=== PATIENT | male | born 1985 | race African-American/Black ===

== ENCOUNTER 2016-10-25 13:13 | Emergency (ER) | payer OTHER ==
[~2016-10-25] VITALS: Ht 188 cm; Wt 95.3 kg
[~2016-10-25 13:13] MED LIST: ALBU8.5H2 IH; AMLO5TAB2 PO; AZIT-21 PO; Amlodipine Besylate PO; CFR250T PO; Lisinopril PO; PRD20T PO
--- OUTSIDE RECORDS SUMMARY | 2016-10-25 13:22 | XMS REPORT | Continuity of Care Document ---
Author Author [facility] Organization [facility] Address Unknown Phone Unavailable Care Team Providers Care Inside Sales Territory Manager Name Role Phone NO, LOCAL PHYSICIAN PCP Unavailable Insurance Providers Payer Name Policy Number Subscriber Name Relationship [facility] [id number] Azar Rivera 20 Self / Same As Patient Advance Directives Directive Response Recorded Date/Time Advance Directives No 03/10/15 5:15pm Organ Donor Yes 03/10/15 5:15pm Resuscitation Status Full Code 03/10/15 5:15pm Chief Complaint and Reason for Visit Chief Complaint CHEST PAIN;UNCONTROLLED HTN Reason for Visit Uncontrolled hypertension Chest pain Uncontrolled hypertension Renal insufficiency Uncontrolled hypertension Problems Medical Problems Problem Onset Date Status Substance abuse Unknown Active Tobacco abuse Unknown Active Pneumonia Unknown Active Substance abuse Unknown Active Tobacco abuse Unknown Active Pneumonia Unknown Active Uncontrolled hypertension Unknown Active Chest pain Unknown Active Uncontrolled hypertension Unknown Active Renal insufficiency Unknown Active Uncontrolled hypertension Unknown Active Medications Medication Dose Route Sig Days/Qty Instructions Order Date Discontinued Date Status Azithromycin (Zpak) 0 PO Z-PRASANTH 6 Qty 2 Tabs 1st day (now), 1 Tab daily 03/10/15 Discontinued Cefuroxime Axetil 1 Tab PO TWICE A DAY 20 Qty 05/01/14 03/10/15 Discontinued Prednisone 60 Mg PO DAILY 15 Qty 05/01/14 03/10/15 Discontinued Albuterol 2 Puff IH EVERY 4HRS For COUGH 1 Qty 05/01/14 03/10/15 Discontinued Amlodipine Besylate (Norvasc 5 Mg) 5 Mg PO DAILY For BLOOD PRESSURE 30 Qty 05/01/14 03/10/15 Discontinued [Amlodipine Besylate] 10 Mg PO DAILY 03/11/15 Active [Lisinopril] 20 Mg PO DAILY 03/11/15 Active Social History Social History Problem Response Recorded Date/Time Alcohol Use Occasionally Uses 03/10/2015 5:15pm Recreational Drug Use Y ADMITS TO THC, BUT HAS TESTED + FOR METH IN PAST 5:15pm Recent Foreign Travel No 03/10/2015 5:15pm Recent Infectious Disease Exposure No 03/10/2015 5:15pm Smoking Status Current Someday Smoker 03/10/2015 5:15pm Do you dip or chew tobacco? No 03/10/2015 5:15pm Query Response Start Date Stop Date Smoking Status Current Someday Smoker Hospital Discharge Instructions No hospital discharge instructions. Plan of Care Discharge Date 03/11/15 12:40pm Disposition 01 HOME, SELF-CARE Instructions/Education Provided Chest Pain (DC) 2 Gram Sodium Diet (DC) Forms Provided PDI Cardiac Cath Prescriptions See Medications Section Referrals PETER ASHRAF MD (Unspecified) 03/18/15 Address: [address] [place], [place] [address] Reason(s) for Referral: AT 10:30 AM CALL AND RESCHEDULE IF UNABLE TO KEEP APPOINTMENT DELIA HOLT MD (Unspecified) Address: [address] [place] [phone] Care Plan and Goals F/U Dr Ashraf's office on March 18 at 10:30 F/U Dr Holt per his instructions Low Sodium Diet Functional Status Query Response Date Recorded Comprehension Ability Understands Concepts March 11, 2015 8:31am Allergies, Adverse Reactions, Alerts Allergen Type Severity Reaction Status Last Updated No Known Drug Allergies Active 05/01/14 Immunizations Name Given Type Tetanus Booster (TDap) More than 5yrs Historical Vital Signs Acute Vital Signs Vital Response Date/Time Temperature (Fahrenheit) 98.0 degrees F (97.6 - 99.5) Temperature (Calculated Celsius) 36.90380 degrees C (36.4 - 37.5) Temperature Source Temporal Pulse Rate (adult) 65 bpm (60 - 90) Respiratory Rate 20 bpm (12 - 24) O2 Sat by Pulse Oximetry 100 % (88 - 100) Blood Pressure 172/110 mm Hg Pain Pain Intensity 0 Height (Feet) 6 feet Height (Inches) 2 inches Height (Calculated Centimeters) 187.619234 cm Weight (Pounds) 197 pounds Weight (Ounces) 0.1 oz Weight (Calculated Grams) 16597.533 gm Weight (Calculated Kilograms) 89.557134 kilograms Calculated BMI 26.32 Results Laboratory Results Test Name Result Units Flags Reference Collection Date/Time Result Date/ Time Comments White Blood Count 4.3 10^3/uL 4.3-11.0 03/11/2015 5:3003/11/2015 5: 46am Red Blood Count 5.47 10^6/uL 4.35-5.85 03/11/2015 5:03/11/2015 5: 46am Hemoglobin 16.8 G/DL 13.3-17.7 03/11/2015 5:03/11/2015 5:46am Hematocrit 49 % 40-54 03/11/2015 5:03/11/2015 5:46am Mean Corpuscular Volume 89 FL 80-99 03/11/2015 5:03/11/2015 5: 46am Mean Corpuscular Hemoglobin 31 PG 25-34 03/11/2015 5:3003/11/2015 5: 46am Mean Corpuscular Hemoglobin Concent 35 G/DL 32-36 03/11/2015 5:30 5:46am Red Cell Distribution Width 12.5 % 10.0-14.5 03/11/2015 5:2014 5:46am Platelet Count 283 10^3/uL 130-400 03/11/2015 5:3003/11/2015 5:46am Mean Platelet Volume 8.6 FL 7.4-10.4 03/11/2015 5:3003/11/2015 5: 46am Neutrophils (%) (Auto) 55 % 42-75 03/11/2015 5:3003/11/2015 5:46am Lymphocytes (%) (Auto) 36 % 12-44 03/11/2015 5:3003/11/2015 5:46am Monocytes (%) (Auto) 6 % 0-12 03/11/2015 5:3003/11/2015 5:46am Eosinophils (%) (Auto) 2 % 0-10 03/11/2015 5:30am 03/11/2015 5:46am Basophils (%) (Auto) 1 % 0-10 03/11/2015 5:3003/11/2015 5:46am Neutrophils # (Auto) 2.4 X 10^3 1.8-7.8 03/11/2015 5:3003/11/2015 5: 46am Lymphocytes # (Auto) 1.5 X 10^3 1.0-4.0 03/11/2015 5:3003/11/2015 5: 46am Monocytes # (Auto) 0.3 X 10^3 0.0-1.0 03/11/2015 5:3003/11/2015 5: 46am Eosinophils # (Auto) 0.1 10^3/uL 0.0-0.3 03/11/2015 5:30am 03/11/2015 5 :46am Basophils # (Auto) 0.1 10^3/uL 0.0-0.1 03/11/2015 5:3003/11/2015 5: 46am Prothrombin Time 14.8 SEC H 12.2-14.7 03/10/2015 2:20pm 03/10/2015 2: 49pm INR Comment 1.2 0.8-1.4 03/10/2015 2:20pm 03/10/2015 2:49pm INTERPRETIVE DATA SUGGESTED THERAPEUTIC RANGE FOR INR'S: VENOUS THROMBOSIS, PULMONARY EMBOLISM, OR PREVENTION OF SYSTEMIC EMBOLISM (EG. IN ATRIAL FIBRILLATION): 2.0 - 3.0 MECHANICAL PROSTHETIC HEART VALVES: 2.5 - 3.5* *NOTE: INR'S UP TO 4.5 MAY BE NECESSARY IN SELECTED GROUPS OF HIGH RISK PATIENTS. [employer] CONSENSUS CONFERENCE ON ANTITHROMBOTIC THERAPY (2000). Activated Partial Thromboplast Time 33 SEC 24-35 03/10/2015 2:20pm 2:49pm D-Dimer < 0.27 UG/ML 0.00-0.49 03/10/2015 2:20pm 03/10/2015 2:49pm Urine Color YELLOW 03/10/2015 3:00pm 03/10/2015 3:25pm Urine Clarity CLEAR 03/10/2015 3:00pm 03/10/2015 3:25pm Urine pH 6.5 5-9 03/10/2015 3:00pm 03/10/2015 3:25pm Urine Specific [place] 1.015 * 1.016-1.022 03/10/2015 3:00pm 2014 3:25pm Urine Protein 1+ * NEGATIVE 03/10/2015 3:00pm 03/10/2015 3:25pm Urine Glucose (UA) NEGATIVE NEGATIVE 03/10/2015 3:00pm 03/10/2015 3: 25pm Urine RBC (Auto) NEGATIVE NEGATIVE 03/10/2015 3:00pm 03/10/2015 3: 25pm Urine Ketones NEGATIVE NEGATIVE 03/10/2015 3:00pm 03/10/2015 3:25pm Urine Nitrite NEGATIVE NEGATIVE 03/10/2015 3:00pm 03/10/2015 3:25pm Urine Bilirubin NEGATIVE NEGATIVE 03/10/2015 3:00pm 03/10/2015 3: 25pm Urine Urobilinogen NORMAL MG/DL NORMAL 03/10/2015 3:00pm 03/10/2015 3: 25pm Urine Leukocyte Esterase 1+ * NEGATIVE 03/10/2015 3:00pm 03/10/2015 3: 25pm Urine RBC NONE /HPF 03/10/2015 3:00pm 03/10/2015 3:25pm Urine WBC RARE /HPF 03/10/2015 3:00pm 03/10/2015 3:25pm Urine Bacteria NONE /HPF 03/10/2015 3:00pm 03/10/2015 3:25pm Urine Squamous Epithelial Cells RARE /HPF 03/10/2015 3:00pm 2014 3:25pm Urine Crystals NONE /LPF 03/10/2015 3:00pm 03/10/2015 3:25pm Urine Casts NONE /LPF 03/10/2015 3:00pm 03/10/2015 3:25pm Urine Mucus NEGATIVE /LPF 03/10/2015 3:00pm 03/10/2015 3:25pm Urine Culture Indicated NO 03/10/2015 3:00pm 03/10/2015 3:25pm Sodium Level 139 MMOL/L 135-145 03/11/2015 5:30am 03/11/2015 6:06am Potassium Level 4.8 MMOL/L 3.6-5.0 03/11/2015 5:30am 03/11/2015 6:06am Chloride Level 107 MMOL/L 98-107 03/11/2015 5:3003/11/2015 6:06am Carbon Dioxide Level 23 MMOL/L 21-32 03/11/2015 5:30am 03/11/2015 6: 06am Blood Urea Nitrogen 13 MG/DL 7-18 03/11/2015 5:30am 03/11/2015 6:06am Creatinine 1.16 MG/DL 0.60-1.30 03/11/2015 5:30am 03/11/2015 6:06am BUN/Creatinine Ratio 11 03/11/2015 5:30am 03/11/2015 6:06am Estimat Glomerular Filtration Rate > 60 03/11/2015 5:302014 6:06am GFR INTERPRETIVE DATA UNITS FOR ESTIMATED GFR (eGFR): mL/min/1.73 M2 REFERENCE RANGE FOR ESTIMATED GFR (eGFR) eGFR NORMAL eGFR >60 MODERATELY DECREASED eGFR 30-59 SEVERLY DECREASED eGFR 15-29 KIDNEY FAILURE <15 (OR DIALYSIS) Glucose Level 88 MG/DL 70-105 03/11/2015 5:3003/11/2015 6:06am Calcium Level 9.2 MG/DL 8.5-10.1 03/11/2015 5:3003/11/2015 6:06am Magnesium Level 2.2 MG/DL 1.8-2.4 03/10/2015 2:20pm 03/10/2015 2:54pm Total Bilirubin 0.8 MG/DL 0.1-1.0 03/11/2015 5:3003/11/2015 6:06am Alkaline Phosphatase 49 U/L 40-136 03/11/2015 5:3003/11/2015 6:06am Aspartate Amino Transf (AST/SGOT) 28 U/L 5-34 03/11/2015 5:302014 6:06am Alanine Aminotransferase (ALT/SGPT) 34 U/L 0-55 03/11/2015 5:30am 03/11 6:06am Total Creatine Kinase 179 U/L 30-200 03/10/2015 2:20pm 03/10/2015 2: 54pm Creatine Kinase MB 1.5 NG/ML <6.6 03/10/2015 2:20pm 03/10/2015 3:14pm Troponin I < 0.30 NG/ML <0.30 03/11/2015 5:30am 03/11/2015 6:09am Troponin I < 0.30 NG/ML <0.30 03/10/2015 8:40pm 03/10/2015 9:29pm B-Type Natriuretic Peptide < 10.0 PG/ML <100.0 03/10/2015 2:20pm 2014 3:05pm Total Protein 6.9 G/DL 6.4-8.2 03/11/2015 5:30am 03/11/2015 6:06am Albumin 4.2 G/DL 3.2-4.5 03/11/2015 5:30am 03/11/2015 6:06am Triglycerides Level 72 MG/DL <150 03/11/2015 5:30am 03/11/2015 6:06am Cholesterol Level 169 MG/DL < 200 03/11/2015 5:30am 03/11/2015 6:06am HDL Cholesterol 45 MG/DL 40-60 03/11/2015 5:30am 03/11/2015 6:06am LDL Cholesterol Direct 92 MG/DL 1-129 03/11/2015 5:30am 03/11/2015 6: 06am VLDL Cholesterol 14 MG/DL 5-40 03/11/2015 5:30am 03/11/2015 6:06am Amylase Level 88 U/L 25-125 03/10/2015 2:20pm 03/10/2015 2:54pm Lipase 36 U/L 8-78 03/10/2015 2:20pm 03/10/2015 2:54pm TSH Ju[place] Testing 1.63 UIU/ML 0.35-4.94 03/10/2015 2:20pm 03/10/2015 3:14pm Procedures Procedure Status Date Provider(s) Tracing only of electrocardiogram completed 03/10/15 BOBBY RAMIREZ DO Color Doppler echocardiography completed 03/10/15 DELIA HOLT MD Encounters Encounter Location Date/Time Admitted Inpatient [facility] 03/10/15 4:35pm Recent Diagnosis Uncontrolled hypertension Chest pain Uncontrolled hypertension Renal insufficiency Uncontrolled hypertension
--- NOTE | 2016-10-25 13:48 | ED Cardiac General ---
History of Present Illness General Chief Complaint: Cardiac/General Problems Stated Complaint: ELEVATED BP Nursing Triage Note: c/o elevated blood pressure. Source: patient Exam Limitations: no limitations History of Present Illness Time seen by provider: 13:35 Initial Comments Patient presents to the ED with c/o elevated BP at home. Patient states he was out of his BP meds for 1 wk. Yesterday he was able to fill the prescriptions and started them yesterday morning. Today his BP was still 190/120mmHg. Patient states he was dx with HTN 1.5 yrs ago and was seen by Dr. Holt in the hospital. Patient's father at the age of 36 from colon cancer. Father also had HTN. Denies chest pain, SOB, dizziness, n/v/d, heartburn. Timing/Duration: other (chronic hypertension. Worse for the last week.) Activities at Onset: none Prior CP/Workup: echocardiography Modifying Factors: improves with other (improved with antihypertensives.) NTG SL MONITORING MANAGER: No ASA po MONITORING MANAGER: No Allergies and Home Medications Allergies Coded Allergies: No Known Drug Allergies (Unverified , 05/01/14) Home Medications 10 MG TABLET 10 MG PO DAILY Prescribed by: PETER REGAN on 03/11/15 1210 20 MG TAB 20 MG PO DAILY Prescribed by: PETER REGAN on 03/11/15 1210 Review of Systems Constitutional: No chills, No diaphoresis, No dizziness, No fever, No malaise, No weakness EENTM: No Symptoms Reported Respiratory: Denies Cough, Denies Orthopnea, Denies Shortness of Air Cardiovascular: See HPIDenies Chest Pain, Denies Edema, Denies Irregular Heart Rate, Denies Lightheadedness, Denies Palpitations, Denies Syncope Gastrointestinal: No Symptoms Reported Genitourinary: No Symptoms Reported Musculoskeletal: no symptoms reported Skin: no symptoms reported Psychiatric/Neurological: HeadacheDenies Numbness, Denies Paresthesia, Denies Tingling, Denies Weakness All Other Systems Reviewed Negative Unless Noted: Yes (Negative excepted noted.) Past Oxxwpif-Wmvfck-Vftxyu Hx Patient Social History Recent Foreign Travel: No Contact w/Someone Who Travel: No Recent Infectious Disease Expo: No Immunizations Up To Date Tetanus Booster (TDap): More than 5yrs Surgeries HX Surgeries: No Respiratory Hx Respiratory Disorders: No Cardiovascular Hx Cardiac Disorders: Yes (HAS REFUSED TO TAKE MEDICATIONS) Cardiac Disorders: Hypertension Neurological Hx Neurological Disorders: No Reproductive System Hx Reproductive Disorders: No Genitourinary Hx Genitourinary Disorders: Yes (chronic kidney disease.) Gastrointestinal Hx Gastrointestinal Disorders: No Musculoskeletal Hx Musculoskeletal Disorders: No Endocrine Hx Endocrine Disorders: No HEENT HX ENT Disorders: No Cancer Hx Cancer: No Psychosocial Hx Psychiatric Problems: No Blood Transfusions Hx Blood Disorders: No Adverse Reaction to a Blood Tr: No Reviewed Nursing Assessment Reviewed/Agree w Nursing PMH: Yes Family Medical History Significant Family History: Cancer (father had colon cancer ( at 36)), Hypertension (father.) Physical Exam Vital Signs Vital Sign - Last 12Hours 10/25/16 13:33 Temp 97.3 Pulse 82 Resp 16 B/P 196/136 Pulse Ox 98 Capillary Refill : Less Than 3 Seconds General Appearance: No Apparent Distress WD/WN HEENT: PERRL/EOMI Pharynx Normal Neck: Normal Inspection Supple Respiratory: Chest Non Tender Lungs Clear Normal Breath Sounds No Respiratory Distress Cardiovascular: Regular Rate, Rhythm No Edema No Murmur Normal Peripheral Pulses Gastrointestinal: Normal Bowel Sounds No Organomegaly No Pulsatile Mass Non Tender SoftNo Distended Extremity: Normal Capillary Refill No Calf Tenderness No Pedal Edema Neurologic/Psychiatric: Alert Oriented x3 No Motor/Sensory Deficits Normal 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 Norm as Tested Skin: Normal Color Warm/Dry Progress/Results/Core Measures Results/Orders Lab Results Laboratory Tests Test 10/25/16 14:26 Range/Units Activated Partial Thromboplast Time 30 24-35 SEC Alanine Aminotransferase (ALT/SGPT) 45 0-55 U/L Albumin 4.6 H 3.2-4.5 G/DL Alkaline Phosphatase 52 40-136 U/L Anion Gap 5 5-14 MMOL/L Aspartate Amino Transf (AST/SGOT) 23 5-34 U/L BUN/Creatinine Ratio 12 Basophils # (Auto) 0.0 0.0-0.1 10^3/uL Basophils (%) (Auto) 1 0-10 % Blood Urea Nitrogen 20 H 7-18 MG/DL Calcium Level 9.3 8.5-10.1 MG/DL Carbon Dioxide Level 28 21-32 MMOL/L Chloride Level 106 98-107 MMOL/L Creatine Kinase MB 1.2 <6.6 NG/ML Creatinine 1.65 H 0.60-1.30 MG/DL D-Dimer < 0.27 0.00-0.49 UG/ML Eosinophils # (Auto) 0.2 0.0-0.3 10^3/uL Eosinophils (%) (Auto) 3 0-10 % Estimat Glomerular Filtration Rate 60 Glucose Level 76 70-105 MG/DL Hematocrit 49 40-54 % Hemoglobin 17.1 13.3-17.7 G/DL INR Comment 1.2 0.8-1.4 Lymphocytes # (Auto) 1.5 1.0-4.0 X 10^3 Lymphocytes (%) (Auto) 30 12-44 % Magnesium Level 2.2 1.8-2.4 MG/DL Mean Corpuscular Hemoglobin 31 25-34 PG Mean Corpuscular Hemoglobin Concent 35 32-36 G/DL Mean Corpuscular Volume 88 80-99 FL Mean Platelet Volume 8.7 7.4-10.4 FL Monocytes # (Auto) 0.3 0.0-1.0 X 10^3 Monocytes (%) (Auto) 6 0-12 % Myoglobin 43.9 10.0-92.0 NG/ML Neutrophils # (Auto) 3.1 1.8-7.8 X 10^3 Neutrophils (%) (Auto) 61 42-75 % Platelet Count 273 130-400 10^3/uL Potassium Level 4.0 3.6-5.0 MMOL/L Prothrombin Time 14.4 12.2-14.7 SEC Red Blood Count 5.59 4.35-5.85 10^6/uL Red Cell Distribution Width 13.2 10.0-14.5 % Sodium Level 139 135-145 MMOL/L Total Bilirubin 0.4 0.1-1.0 MG/DL Total Creatine Kinase 151 30-200 U/L Total Protein 7.4 6.4-8.2 G/DL Troponin I < 0.30 <0.30 NG/ML White Blood Count 5.1 4.3-11.0 10^3/uL My Orders Orders-PAKO TRINIDAD PA Cbc With Automated Diff (10/25/16 13:43) Magnesium (10/25/16 13:43) Chest 1 View, Ap/Pa Only (10/25/16 13:43) Ekg Tracing (10/25/16 13:43) Cardiac Profile 1 (10/25/16 13:43) Comprehensive Metabolic Panel (10/25/16 13:43) Myoglobin Serum (10/25/16 13:43) Protime With Inr (10/25/16 13:43) Partial Thromboplastin Time (10/25/16 13:43) Monitor-Rhythm Ecg Trace Only (10/25/16 13:43) Saline Lock/Iv-Start (10/25/16 13:43) Creatine Kinase (10/25/16 13:43) Creatine Kinase Mb (10/25/16 13:43) Fibrin Degradation Products (10/25/16 13:43) Ketorolac Injection (Toradol Injection) (10/25/16 14:04) Orphenadrine Injection (Norflex Injectio (10/25/16 14:04) Enalaprilat Injection (Vasotec Injection (10/25/16 14:15) Amlodipine Tablet (Norvasc Tablet) (10/25/16 15:45) Medications Given in ED Vital Signs/I&O Vital Sign - Last 12Hours 10/25/16 10/25/16 10/25/16 13:33 14:34 15:45 Temp 97.3 97.3 97.3 Pulse 82 82 Resp 16 16 B/P 196/136 Pulse Ox 98 98 Blood Pressure Mean: 156 ECG Initial ECG Impression Date: Oct 25, 2016 Initial ECG Impression Time: 14:17 Initial ECG Rate: 70 Initial ECG Rhythm: Normal Sinus Initial ECG Comparisson: Unchanged Comment sinus rhythm. ST elevation due to early repolarization pattern that is similar to previous ECG from02/07/15. ECG reviewed and discussed with Dr. Huynh. Diagnostic Imaging Diagonstic Imaging: Xray Plain Films/CT/US/NM/MRI: chest Comments FINDINGS: A nodular density projecting over the right 1st rib costochondral junction is again seen with no definite change from 03/10/2015. Otherwise, the lungs are clear. The heart size is normal. No effusion or pneumothorax. The mediastinum and thelma appear unremarkable. IMPRESSION: No acute process. A stable nodular density in the right lung apex is probably a calcified granuloma. Dictated by: Dictated on workstation # [id number] Reviewed: Reviewed by Me (radiology report reviewed by me.) Departure Communication Progress Notes [id number] patient case discussed with Dr. Contreras with recommendations for norvasc 5mg po x1dose and dsch to home. recommends f/u with Damien Lagunas APRN at [facility]. Laboratory findings, diagnostic study findings, and recommendations by Dr. Contreras discussed with the patient. Patient reports his headache has resolved. States he is feeling much better. Patient is alert and oriented 3, no acute distress. All return precautions were discussed with the patient as described in the discharge instructions of this report. Patient voices understanding and agrees with the treatment plan. Patient case discussed with Dr. Diaz, he agrees with the plan of care. Impression Impression: Primary Impression: Hypertensive urgency Additional Impression: Chronic kidney disease (CKD) Disposition: HOME, SELF-CARE Condition: Improved Departure-Patient Inst. Decision time for Depature: 15:36 Referrals: [facility] (PCP/Family) Primary Care Physician Patient Instructions: Chronic Kidney Disease (DC), Malignant Hypertension (DC) Add. Discharge Instructions: All discharge instructions reviewed with patient and/or family. Voiced understanding. Continue usual medications. Monitor blood pressure closely. Follow-up with Damien Lagunas APRN tomorrow or for a recheck and repeat labs. Call today for appointment time. Return to the emergency department for worsened headache, dizziness, elevated blood pressure, chest pain, shortness of breath, or any other concerns. Work/School Note: Work Release Form Date Seen in the Emergency Department: Oct 25, 2016 Return to Work: Oct 27, 2016 Restrictions: No Restrictions PAKO TRINIDAD Oct 25, 2016 13:48
[2016-10-25] MEDS ORDERED: KETOROLAC 30 MG/ML VIAL IVP STA (14:04)
[2016-10-25] MEDS ORDERED: ORPHENADRINE 60 MG/2 ML (NORFLEX) AMP IV STA (14:04)
[2016-10-25] MEDS ORDERED: ENALAPRILAT 2.5 MG/2 ML (VASOTEC) VIAL IV ONE (14:15)
[2016-10-25 14:34] LABS: BASOPHILS % (AUTO) 1 % (0-10); EOSINOPHILS # (AUTO) 0.2 10^3/uL (0.0-0.3); EOSINOPHILS % (AUTO) 3 % (0-10); LYMPHOCYTES # (AUTO) 1.5 X 10^3 (1.0-4.0); LYMPHOCYTES % (AUTO) 30 % (12-44); MEAN CORPUSCULAR HEMOGLOBIN 31 PG (25-34); MEAN CORPUSCULAR HGB CONC 35 G/DL (32-36); MEAN CORPUSCULAR VOLUME 88 FL (80-99); MEAN PLATELET VOLUME 8.7 FL (7.4-10.4); MONOCYTES # (AUTO) 0.3 X 10^3 (0.0-1.0); MONOCYTES % (AUTO) 6 % (0-12); NEUTROPHILS # (AUTO) 3.1 X 10^3 (1.8-7.8); NEUTROPHILS % (AUTO) 61 % (42-75); PLATELET COUNT 273 10^3/uL (130-400); RED BLOOD COUNT 5.59 10^6/uL (4.35-5.85); RED CELL DISTRIBUTION WIDTH 13.2 % (10.0-14.5); WHITE BLOOD COUNT 5.1 10^3/uL (4.3-11.0)
[2016-10-25 14:48] LABS: INR 1.2 (0.8-1.4); PROTHROMBIN TIME PATIENT 14.4 SEC (12.2-14.7)
[2016-10-25 14:58] LABS: ALANINE AMINOTRANSFERASE 45 U/L (0-55); ALBUMIN 4.6 G/DL (3.2-4.5); ANION GAP 5 MMOL/L (5-14); ASPARTATE AMINO TRANSFERASE 23 U/L (5-34); BILIRUBIN,TOTAL 0.4 MG/DL (0.1-1.0); BLOOD UREA NITROGEN 20 MG/DL (7-18); BUN/CREATININE RATIO 12; CALCIUM 9.3 MG/DL (8.5-10.1); CARBON DIOXIDE 28 MMOL/L (21-32); CHLORIDE 106 MMOL/L (98-107); CREATINE KINASE 151 U/L (30-200); CREATININE SERUM 1.65 MG/DL (0.60-1.30); GFR ESTIMATED 60; GLUCOSE 76 MG/DL (70-105); MAGNESIUM 2.2 MG/DL (1.8-2.4); SODIUM 139 MMOL/L (135-145); TOTAL PROTEIN 7.4 G/DL (6.4-8.2)
--- NOTE | 2016-10-25 15:03 | Diagnostic Imaging Report ---
EXAMINATION: Portable upright radiograph of the chest. INDICATION: Elevated blood pressure. FINDINGS: A nodular density projecting over the right 1st rib costochondral junction is again seen with no definite change from 03/10/2015. Otherwise, the lungs are clear. The heart size is normal. No effusion or pneumothorax. The mediastinum and thelma appear unremarkable. IMPRESSION: No acute process. A stable nodular density in the right lung apex is probably a calcified granuloma. Dictated by: Dictated on workstation # [id number]
[2016-10-25 15:05] LABS: MYOGLOBIN SERUM 43.9 NG/ML (10.0-92.0)
[2016-10-25 15:45] VITALS: BP 162/120
[2016-10-25] MEDS ORDERED: amLODIPine 5 MG (NORVASC) TAB PO ONE (15:45)
== END 2016-10-25 15:45 | disposition home or self-care (01) ==
LOC: EDUNIT# 13:13 → ER 13:17
DX: I12.9 Hypertensive chronic kidney disease with stage 1 through stage 4 chronic kidney disease, or unspecified chronic kidney disease (principal); N18.9 Chronic kidney disease, unspecified; R91.8 Other nonspecific abnormal finding of lung field
CPT/HCPCS: 36415; 71010; 80053; 82550; 82553; 83735; 83874; 84484; 85025; 85379; 85610; 85730; 93005; 93041; 96374; 96375

== ENCOUNTER 2017-01-31 08:06 | Emergency (ER) | payer OTHER ==
[~2017-01-31] VITALS: Ht 185.4 cm; Wt 95.3 kg
[2017-01-31] MEDS ORDERED: LISI1TAB8 (08:38)
[2017-01-31] MEDS ORDERED: cloNIDine 0.2 MG (CATAPRES) TAB PO ONE (08:45)
--- NOTE | 2017-01-31 08:53 | ED Cardiac General ---
History of Present Illness General Chief Complaint: Cardiac/General Problems Stated Complaint: ELEVATED BLOOD PRESSURE Nursing Triage Note: ARRIVED VIA AMB TO ROOM 06. COMPLAINS OF NECK AND HEAD PAIN ET THINKS IT IS HIS BP. Source: patient History of Present Illness Time seen by provider: 08:25 Initial Comments PT STATES HE WOKE UP THIS MORNING AROUND 0400 AND FELT LIKE HIS BP WAS ELEVATED , BUT DID NOT CHECK HIS BP C/O HEADACHE AND NECK PAIN--PAIN IS IN POSTERIOR ASPECT OF HIS HEAD AND NECK-- IS TYPICAL SYMPTOM WHEN HIS BP IS ELEVATED PT STATES HIS BP IS FREQUENTLY 180-200'S / 130'S-140'S PT STATES HE MISSED ONE DAY OF MEDICATIONS LAST WEEK, OTHERWISE DENIES MISSING ANY DOSES. 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 LAST VISIT A MONTH AGO. PT CLAIMS HE HAS NEVER SEEN A PHYSICIAN AT [facility] AND CLAIMS HE HAS NEVER BEEN REFERRED TO A RIGHT OF WAY AGENT PT HAS LONG HISTORY OF HTN, AND NON-COMPLIANCE, AND IN THE PAST HAS REFUSED TO TAKE ANY MEDICATIONS FOR IT. PT STATES HE TAKES BOTH AMLODIPINE AND LISINOPRIL EVERY DAY Allergies and Home Medications Allergies Coded Allergies: No Known Drug Allergies (Unverified , 05/01/14) Home Medications Lisinopril/Hydrochlorothiazide 1 Each Tablet, #60 (Reported) [Amlodipine Besylate] 10 MG TABLET, 10 MG PO DAILY Prescribed by: PETER REGAN on 03/11/15 1210 Review of Systems Constitutional: no symptoms reported EENTM: No Symptoms Reported Respiratory: No Symptoms Reported Cardiovascular: See HPI, Chest Pain, Denies Edema, Denies Irregular Heart Rate , Denies Lightheadedness, Denies Palpitations Gastrointestinal: No Symptoms Reported Genitourinary: No Symptoms Reported Musculoskeletal: see HPI, neck pain Skin: no symptoms reported Psychiatric/Neurological: See HPI, Headache, Denies Numbness, Denies Paresthesia, Denies Weakness Endocrine: No Symptoms Reported Hematologic/Lymphatic: No Symptoms Reported Past Cjcymmb-Lenrgk-Lbadfr Hx Patient Social History Alcohol Use: Rarely Uses Recreational Drug Use: Yes (PT ONLY ADMITS TO THC, BUT HAS TESTED + FOR METH IN THE PAST) Smoking Status: Current Everyday Smoker (1/2 PPD) Recent Foreign Travel: No Contact w/Someone Who Travel: No Recent Infectious Disease Expo: No Recent Hopitalizations: No Immunizations Up To Date Tetanus Booster (TDap): More than 5yrs Surgeries HX Surgeries: No Respiratory Hx Respiratory Disorders: No Cardiovascular Hx Cardiac Disorders: Yes (HX OF NON-COMPLIANCE WITH MEDICATIONS) Cardiac Disorders: Hypertension Neurological Hx Neurological Disorders: No Reproductive System Hx Reproductive Disorders: No Genitourinary Hx Genitourinary Disorders: Yes (chronic kidney disease.) Gastrointestinal Hx Gastrointestinal Disorders: No Musculoskeletal Hx Musculoskeletal Disorders: No Endocrine Hx Endocrine Disorders: No HEENT HX ENT Disorders: No Cancer Hx Cancer: No Psychosocial Hx Psychiatric Problems: No Integumentary HX Skin/Integumentary Disorder: No Blood Transfusions Hx Blood Disorders: No Adverse Reaction to a Blood Tr: No Family Medical History Significant Family History: Cancer, Hypertension Physical Exam Vital Signs Vital Sign - Last 12Hours 01/31/17 08:20 Temp 98.0 Pulse 76 Resp 18 B/P (MAP) 180/129 Pulse Ox 98 Capillary Refill : Less Than 3 Seconds General Appearance: No Apparent Distress, WD/WN Neck: Full Range of Motion, Normal Inspection, Non Tender, Supple, No Carotid Bruit, No JVD Respiratory: Normal Breath Sounds, No Accessory Muscle Use, No Respiratory Distress Cardiovascular: Regular Rate, Rhythm, No Edema, No JVD, No Murmur, Normal Peripheral Pulses Gastrointestinal: Normal Bowel Sounds, No Organomegaly, No Pulsatile Mass, Non Tender, Soft Extremity: Normal Capillary Refill, Normal Inspection, Normal Range of Motion, Non Tender, No Calf Tenderness, No Pedal Edema Neurologic/Psychiatric: Alert, Oriented x3, No Motor/Sensory Deficits, Normal 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, 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 Skin: Normal Color, Warm/Dry Progress/Results/Core Measures Results/Orders Lab Results Laboratory Tests Test 01/31/17 08:50 01/31/17 09:39 Range/Units White Blood Count 5.0 4.3-11.0 10^3/uL Red Blood Count 5.44 4.35-5.85 10^6/uL Hemoglobin 16.7 13.3-17.7 G/DL Hematocrit 48 40-54 % Mean Corpuscular Volume 88 80-99 FL Mean Corpuscular Hemoglobin 31 25-34 PG Mean Corpuscular Hemoglobin Concent 35 32-36 G/DL Red Cell Distribution Width 12.9 10.0-14.5 % Platelet Count 303 130-400 10^3/uL Mean Platelet Volume 8.8 7.4-10.4 FL Neutrophils (%) (Auto) 64 42-75 % Lymphocytes (%) (Auto) 25 12-44 % Monocytes (%) (Auto) 6 0-12 % Eosinophils (%) (Auto) 3 0-10 % Basophils (%) (Auto) 1 0-10 % Neutrophils # (Auto) 3.2 1.8-7.8 X 10^3 Lymphocytes # (Auto) 1.3 1.0-4.0 X 10^3 Monocytes # (Auto) 0.3 0.0-1.0 X 10^3 Eosinophils # (Auto) 0.2 0.0-0.3 10^3/uL Basophils # (Auto) 0.1 0.0-0.1 10^3/uL Prothrombin Time 14.4 12.2-14.7 SEC INR Comment 1.2 0.8-1.4 Activated Partial Thromboplast Time 30 24-35 SEC Sodium Level 140 135-145 MMOL/L Potassium Level 4.3 3.6-5.0 MMOL/L Chloride Level 109 H 98-107 MMOL/L Carbon Dioxide Level 21 21-32 MMOL/L Anion Gap 10 5-14 MMOL/L Blood Urea Nitrogen 15 7-18 MG/DL Creatinine 1.75 H 0.60-1.30 MG/DL Estimat Glomerular Filtration Rate 56 BUN/Creatinine Ratio 9 Glucose Level 86 70-105 MG/DL Calcium Level 9.7 8.5-10.1 MG/DL Magnesium Level 2.4 1.8-2.4 MG/DL Total Bilirubin 0.5 0.1-1.0 MG/DL Aspartate Amino Transf (AST/SGOT) 27 5-34 U/L Alanine Aminotransferase (ALT/SGPT) 28 0-55 U/L Alkaline Phosphatase 44 40-136 U/L Total Creatine Kinase 274 H 30-200 U/L Creatine Kinase MB 2.0 <6.6 NG/ML Troponin I < 0.30 <0.30 NG/ML B-Type Natriuretic Peptide 32.4 <100.0 PG/ML Total Protein 7.3 6.4-8.2 G/DL Albumin 4.4 3.2-4.5 G/DL TSH [facility] Testing 1.36 0.35-4.94 UIU/ML Urine Color YELLOW Urine Clarity CLEAR Urine pH 6 5-9 Urine Specific [place] 1.010 L 1.016-1.022 Urine Protein NEGATIVE NEGATIVE Urine Glucose (UA) NEGATIVE NEGATIVE Urine Ketones NEGATIVE NEGATIVE Urine Nitrite NEGATIVE NEGATIVE Urine Bilirubin NEGATIVE NEGATIVE Urine Urobilinogen NORMAL NORMAL MG/DL Urine Leukocyte Esterase NEGATIVE NEGATIVE Urine RBC (Auto) NEGATIVE NEGATIVE Urine RBC NONE /HPF Urine WBC NONE /HPF Urine Squamous Epithelial Cells RARE /HPF Urine Crystals NONE /LPF Urine Bacteria NEGATIVE /HPF Urine Casts PRESENT /LPF Urine Hyaline Casts RARE /LPF Urine Mucus NEGATIVE /LPF Urine Culture Indicated NO Urine Opiates Screen NEGATIVE NEGATIVE Urine Oxycodone Screen NEGATIVE NEGATIVE Urine Methadone Screen NEGATIVE NEGATIVE Urine Propoxyphene Screen NEGATIVE NEGATIVE Urine Barbiturates Screen NEGATIVE NEGATIVE Ur Tricyclic Antidepressants Screen NEGATIVE NEGATIVE Urine Phencyclidine Screen NEGATIVE NEGATIVE Urine Amphetamines Screen NEGATIVE NEGATIVE Urine Methamphetamines Screen NEGATIVE NEGATIVE Urine Benzodiazepines Screen NEGATIVE NEGATIVE Urine Cocaine Screen NEGATIVE NEGATIVE Urine Cannabinoids Screen POSITIVE H NEGATIVE My Orders Orders - BOBBY RAMIREZ DO Cbc With Automated Diff (01/31/17 08:41) Comprehensive Metabolic Panel (01/31/17 08:41) Creatine Kinase (01/31/17 08:41) Creatine Kinase Mb (01/31/17 08:41) Partial Thromboplastin Time (01/31/17 08:41) Protime With Inr (01/31/17 08:41) Troponin I (01/31/17 08:41) Chest 1 View, Ap/Pa Only (01/31/17 08:41) O2 (01/31/17 08:41) Ekg Tracing (01/31/17 08:41) BNP (01/31/17 08:41) Monitor-Rhythm Ecg Trace Only (01/31/17 08:41) Drug Screen Stat (Urine) (01/31/17 08:41) Magnesium (01/31/17 08:41) Thyroid Analyzer (01/31/17 08:41) Ua Culture If Indicated (01/31/17 08:41) Clonidine Tablet (Catapres Tablet) (01/31/17 08:45) Nitroglycerin Ointment (Nitrobid Ointme (01/31/17 09:45) Enalaprilat Injection (Vasotec Injection (01/31/17 09:45) Medications Given in ED Current Medications Medications Dose Ordered Sig/Rm Route Start Time Stop Time Status Last Admin Dose Admin Clonidine HCl 0.2 mg ONCE ONCE PO 01/31/17 08:45 01/31/17 08:46 DC 01/31/17 09:07 0.2 MG Enalaprilat 5 mg ONCE ONCE IV 01/31/17 09:45 01/31/17 09:46 DC 01/31/17 09:52 5 MG Nitroglycerin 1 inch ONCE ONCE TOP 01/31/17 09:45 01/31/17 09:46 DC 01/31/17 09:53 1 INCH Vital Signs/I&O Vital Sign - Last 12Hours 01/31/17 08:20 Temp 98.0 Pulse 76 Resp 18 B/P (MAP) 180/129 Pulse Ox 98 Blood Pressure Mean: 146 Progress Note : Progress Note BP DOWN TO 139/102 PRIOR TO DISMISSAL AND PT FEELS BETTER ECG Initial ECG Impression Time: 08:54 Initial ECG Rate: 72 Initial ECG Rhythm: Normal Sinus Initial ECG Impression: Nonspecific Changes (LVH, EARLY REPOLARIZATION) Initial ECG Comparisson: Unchanged Diagnostic Imaging Comments CXR--NO ACUTE PROCESS, PER RADIOLOGIST REPORT @ 0940 Reviewed: Reviewed by Me Departure Communication Progress Notes CALLED [facility]--APPOINTMENT MADE FOR PT TO SEE DR. ARREDONDO, Monday02/02/17 AT 3:00 Impression Impression: Primary Impression: Hypertensive urgency Additional Impressions: Uncontrolled hypertension Chronic renal insufficiency Disposition: 01 HOME, SELF-CARE Condition: Improved Departure-Patient Inst. Referrals: [facility] (PCP/Family) Primary Care Physician Patient Instructions: DASH Diet, Heart Healthy Diet, High Blood Pressure (DC) Add. Discharge Instructions: DOUBLE YOUR AMLODIPINE DOSE AND CONTINUE YOUR CURRENT DOSE OF LISINOPRIL FOLLOW UP WITH [facility] THIS WEEK FOR FURTHER CARE--APPOINTMENT WITH DR ARREDONDO THIS Monday02/02/17 AT 3:00 PM RETURN TO ER IF WORSE All discharge instructions reviewed with patient and/or family. Voiced understanding. BOBBY RAMIREZ DO January 31, 2017 08:53
[2017-01-31 09:05] LABS: BASOPHILS # (AUTO) 0.1 10^3/uL (0.0-0.1); BASOPHILS % (AUTO) 1 % (0-10); EOSINOPHILS # (AUTO) 0.2 10^3/uL (0.0-0.3); EOSINOPHILS % (AUTO) 3 % (0-10); LYMPHOCYTES # (AUTO) 1.3 X 10^3 (1.0-4.0); LYMPHOCYTES % (AUTO) 25 % (12-44); MEAN CORPUSCULAR HEMOGLOBIN 31 PG (25-34); MEAN CORPUSCULAR HGB CONC 35 G/DL (32-36); MEAN CORPUSCULAR VOLUME 88 FL (80-99); MEAN PLATELET VOLUME 8.8 FL (7.4-10.4); MONOCYTES # (AUTO) 0.3 X 10^3 (0.0-1.0); MONOCYTES % (AUTO) 6 % (0-12); NEUTROPHILS # (AUTO) 3.2 X 10^3 (1.8-7.8); NEUTROPHILS % (AUTO) 64 % (42-75); PLATELET COUNT 303 10^3/uL (130-400); RED BLOOD COUNT 5.44 10^6/uL (4.35-5.85); RED CELL DISTRIBUTION WIDTH 12.9 % (10.0-14.5)
--- NOTE | 2017-01-31 09:13 | Diagnostic Imaging Report ---
INDICATION: Hypertension. Portable chest 9:05 AM. Heart size and pulmonary vascularity are normal. Lungs are clear. There are no effusions or pneumothoraces. IMPRESSION: Negative chest. Dictated by: Dictated on workstation # [id number]
[2017-01-31 09:20] LABS: INR 1.2 (0.8-1.4); PROTHROMBIN TIME PATIENT 14.4 SEC (12.2-14.7)
[2017-01-31 09:27] LABS: ALANINE AMINOTRANSFERASE 28 U/L (0-55); ALBUMIN 4.4 G/DL (3.2-4.5); ANION GAP 10 MMOL/L (5-14); ASPARTATE AMINO TRANSFERASE 27 U/L (5-34); BILIRUBIN,TOTAL 0.5 MG/DL (0.1-1.0); BLOOD UREA NITROGEN 15 MG/DL (7-18); BUN/CREATININE RATIO 9; CALCIUM 9.7 MG/DL (8.5-10.1); CARBON DIOXIDE 21 MMOL/L (21-32); CHLORIDE 109 MMOL/L (98-107); CREATINE KINASE 274 U/L (30-200); CREATININE SERUM 1.75 MG/DL (0.60-1.30); GFR ESTIMATED 56; GLUCOSE 86 MG/DL (70-105); MAGNESIUM 2.4 MG/DL (1.8-2.4); POTASSIUM 4.3 MMOL/L (3.6-5.0); SODIUM 140 MMOL/L (135-145); TOTAL PROTEIN 7.3 G/DL (6.4-8.2)
[2017-01-31] MEDS ORDERED: NITROGLYCERIN 2% OINT 1 GM UNIT DOSE PACKET TOP ONE (09:45)
[2017-01-31] MEDS ORDERED: ENALAPRILAT 2.5 MG/2 ML (VASOTEC) VIAL IV ONE (09:45)
[2017-01-31 09:46] LABS: TROPONIN I < 0.30 NG/ML (<0.30)
[2017-01-31 09:47] LABS: BILIRUBIN,URINE NEGATIVE (NEGATIVE); KETONES,URINE NEGATIVE (NEGATIVE); LEUKOCYTE ESTERASE ,URINE NEGATIVE (NEGATIVE); NITRITE,URINE NEGATIVE (NEGATIVE); PH,URINE 6 (5-9); PROTEIN,URINE NEGATIVE (NEGATIVE); UROBILINOGEN,URINE NORMAL (NORMAL)
[2017-01-31 10:07] LABS: HYALINE CASTS, URINE RARE /LPF; SQUAMOUS EPITHELIAL CELL,UR RARE /HPF
[2017-01-31 11:10] VITALS: BP 142/101
== END 2017-01-31 11:10 | disposition home or self-care (01) ==
LOC: EDUNIT# 08:06 → ER 08:08
DX: I16.0 Hypertensive urgency (principal); N28.9 Disorder of kidney and ureter, unspecified; F17.210 Nicotine dependence, cigarettes, uncomplicated; F12.90 Cannabis use, unspecified, uncomplicated; Z79.899 Other long term (current) drug therapy
CPT/HCPCS: 36415; 71010; 80053; 80306; 81000; 82550; 82553; 83735; 83880; 84443; 84484; 85025; 85610; 85730; 93005; 93041; 96374

== ENCOUNTER 2018-04-04 14:11 | Emergency (ER) | payer OTHER ==
[~2018-04-04] VITALS: Ht 188 cm; Wt 85.7 kg
[~2018-04-04 14:11] MED LIST changes: +LISI1TAB8
--- OUTSIDE RECORDS SUMMARY | 2018-04-04 14:23 | XMS REPORT ---
Author Author BYRON HERNÁNDEZ [facility] Address [address] [place] [address] Care Team Providers Care Desk Editor Name Role Phone BYRON HERNÁNDEZ Unavailable PROBLEMS Type Condition ICD9-CM Code [id number] Code Onset Dates Condition Status SNOMED Code Problem Chronic kidney disease, unspecified CKD stage N18.9 Active 717155599 Problem Accelerated hypertension I10 Active 92171777 Problem Hypertension, essential I10 Active [id number] ALLERGIES Unknown Allergies SOCIAL HISTORY No smoking Hx information available PLAN OF CARE VITAL SIGNS MEDICATIONS Medication Instructions Dosage Frequency Start Date End Date Duration Status Metoprolol Tartrate 50 mg Orally Twice a day 1 tablet with food 12h Mar 30 days Active Amlodipine Besylate 10 mg Orally Once a day 1 tablet 24h 13 Mar, 2016 30 day(s) Active RESULTS No Results PROCEDURES No Known procedures IMMUNIZATIONS No Known Immunizations
--- OUTSIDE RECORDS SUMMARY | 2018-04-04 14:23 | XMS REPORT ---
Author Author BYRON HERNÁNDEZ Organization [facility] Address [address] [place] [address] Care Team Providers Care Survey Director Name Role Phone BYRON HERNÁNDEZ Unavailable PROBLEMS Type Condition ICD9-CM Code [id number] Code Onset Dates Condition Status SNOMED Code Problem Chronic kidney disease, unspecified CKD stage N18.9 Active 726837121 Problem Accelerated hypertension I10 Active 92336856 Problem Hypertension, essential I10 Active 55042864 ALLERGIES No Known Allergies ENCOUNTERS Encounter Location Date Diagnosis [place] [address] [phone] Apr, Chronic kidney disease, unspecified CKD stage N18.9 [place] [address] [place] [id number] [place] [phone] Feb, Hypertension, essential I10 and Chronic kidney disease, unspecified CKD stage N18.9 [place] [address] [place] [id number] [place] [phone] January, Accelerated hypertension I10 and Chronic kidney disease, unspecified CKD stage N18.9 [place] [address] [place] [id number] [place] [address] Nov, Hypertension, essential I10 [place] [address] [place] [id number] [place] [address] Nov, [place] [address] [address] Oct, Accelerated hypertension I10 [place] [address] [place] [id number] [place] [phone] Oct, [place] [address] [address] Aug, [facility] [address] [facility] [id number] [place] [address] Mar, Essential hypertension I10 and Anxiety F41.9 [facility] [address] [facility] [id number] [place] [address] Mar, Hypertension, essential I10 IMMUNIZATIONS No Known Immunizations SOCIAL HISTORY Never Assessed REASON FOR VISIT Blood Pressure. No concerns. LISA Nick PLAN OF CARE Activity Details Follow Up 4 Weeks Reason:htn VITAL SIGNS Height 74 in 2017-02-20 Weight 212 lbs 2017-02-20 Temperature 98.0 degrees Fahrenheit 2017-02-20 Heart Rate 76 bpm 2017-02-20 Respiratory Rate 18 2017-02-20 BMI 27.22 kg/m2 2017-02-20 Blood pressure systolic 150 mmHg 2017-02-20 Blood pressure diastolic 124 mmHg 2017-02-20 MEDICATIONS Medication Instructions Dosage Frequency Start Date End Date Duration Status Blood Pressure Monitor 1 as directed Mar, Active Lisinopril-Hydrochlorothiazide 20-12.5 MG Orally Once a day 2 tablets 24h Nov, 30 day(s) Active Amlodipine Besylate 10 mg Orally Once a day 1 tablet 24h Mar, 30 day(s) Active Cardura 4 MG Orally Once a day, hs 1 tablet January, 30 day(s) Active Ambien 10 mg Orally Once a day 1 tablet at bedtime as needed 24h Nov, Active RESULTS Name Result Date Reference Range TSH 2017-02-20 TSH 2.000 0.450-4.500 LIPID PANEL 2017-02-20 Cholesterol, Total 201 100-199 Triglycerides 166 0-149 HDL Cholesterol 42 >39 VLDL Cholesterol Ned 33 5-40 LDL Cholesterol Calc 126 0-99 Comment: CMP 2017-02-20 Glucose, Serum 89 65-99 BUN 16 6-20 Creatinine, Serum 1.62 0.76-1.27 eGFR If NonAfricn Am 57 >59 eGFR If Africn Am 65 >59 BUN/Creatinine Ratio 10 9-20 Sodium, Serum 141 134-144 Potassium, Serum 4.8 3.5-5.2 Chloride, Serum 100 96-106 Carbon Dioxide, Total 22 18-29 Calcium, Serum 9.5 8.7-10.2 Protein, Total, Serum 7.0 6.0-8.5 Albumin, Serum 4.3 3.5-5.5 Globulin, Total 2.7 1.5-4.5 A/G Ratio 1.6 1.2-2.2 Bilirubin, Total 0.2 0.0-1.2 Alkaline Phosphatase, S 56 39-117 AST (SGOT) 30 0-40 ALT (SGPT) 76 0-44 TSH 2017-02-20 TSH 2.000 0.450-4.500 CBC 2017-02-20 WBC 4.2 3.4-10.8 RBC 5.39 4.14-5.80 Hemoglobin 16.9 12.6-17.7 Hematocrit 48.6 37.5-51.0 MCV 90 79-97 MCH 31.4 26.6-33.0 MCHC 34.8 31.5-35.7 RDW 13.4 12.3-15.4 Platelets 312 150-379 Neutrophils 60 Lymphs 30 Monocytes 6 Eos 3 Basos 1 Neutrophils (Absolute) 2.5 1.4-7.0 Lymphs (Absolute) 1.3 0.7-3.1 Monocytes(Absolute) 0.2 0.1-0.9 Eos (Absolute) 0.1 0.0-0.4 Baso (Absolute) 0.0 0.0-0.2 Immature Granulocytes 0 Immature Grans (Abs) 0.0 0.0-0.1 LIPID PANEL 2017-02-20 Cholesterol, Total 201 100-199 Triglycerides 166 0-149 HDL Cholesterol 42 >39 VLDL Cholesterol Ned 33 5-40 LDL Cholesterol Calc 126 0-99 Comment: CMP 2017-02-20 Glucose, Serum 89 65-99 BUN 16 6-20 Creatinine, Serum 1.62 0.76-1.27 eGFR If NonAfricn Am 57 >59 eGFR If Africn Am 65 >59 BUN/Creatinine Ratio 10 9-20 Sodium, Serum 141 134-144 Potassium, Serum 4.8 3.5-5.2 Chloride, Serum 100 96-106 Carbon Dioxide, Total 22 18-29 Calcium, Serum 9.5 8.7-10.2 Protein, Total, Serum 7.0 6.0-8.5 Albumin, Serum 4.3 3.5-5.5 Globulin, Total 2.7 1.5-4.5 A/G Ratio 1.6 1.2-2.2 Bilirubin, Total 0.2 0.0-1.2 Alkaline Phosphatase, S 56 39-117 AST (SGOT) 30 0-40 ALT (SGPT) 76 0-44 PROCEDURES Procedure Date Ordered Result Body Site VENIPUNCT, ROUTINE* February 20, 2017 COMPREHEN METABOLIC PANEL February 20, 2017 COMPLETE CBC W/AUTO DIFF WBC February 20, 2017 LIPID PANEL February 20, 2017 ASSAY THYROID STIM HORMONE February 20, 2017 INSTRUCTIONS MEDICATIONS ADMINISTERED No Known Medications MEDICAL (GENERAL) HISTORY Type Description Date Medical History hypertension Hospitalization History hypertension 2014
--- OUTSIDE RECORDS SUMMARY | 2018-04-04 14:23 | XMS REPORT ---
Author Author BYRON HERNÁNDEZ [facility] Address [address] [place] [address] Care Team Providers Care And Taxi Instructor Bus Trolley Name Role Phone BYRON HERNÁNDEZ Unavailable PROBLEMS Type Condition ICD9-CM Code PVH10-TX Code Onset Dates Condition Status SNOMED Code Problem Chronic kidney disease, unspecified CKD stage N18.9 Active 377331025 Problem Accelerated hypertension I10 Active 58704327 Problem Hypertension, essential I10 Active 27336093 ALLERGIES No Known Allergies SOCIAL HISTORY Never Assessed PLAN OF CARE VITAL SIGNS MEDICATIONS Medication Instructions Dosage Frequency Start Date End Date Duration Status Blood Pressure Monitor 1 as directed Mar, Active Bystolic 20 MG Orally Once a day 1 tablet 24h Active Amlodipine Besylate 10 mg Orally Once a day 1 tablet 24h Mar, 30 day(s) Active RESULTS No Results PROCEDURES No Known procedures IMMUNIZATIONS No Known Immunizations MEDICAL (GENERAL) HISTORY Type Description Date Medical History hypertension Hospitalization History hypertension 2014
--- OUTSIDE RECORDS SUMMARY | 2018-04-04 14:24 | XMS REPORT ---
Author Author JAYME ARREDONDO [facility] Address [address] [place] [address] Care Team Providers Care [employer] Name Role Phone JAYME ARREDONDO Unavailable PROBLEMS Type Condition ICD9-CM Code [id number] Code Onset Dates Condition Status SNOMED Code Problem Chronic kidney disease, unspecified CKD stage N18.9 Active 793687643 Problem Accelerated hypertension I10 Active 24341249 Problem Hypertension, essential I10 Active 26363771 ALLERGIES No Known Allergies SOCIAL HISTORY Never Assessed PLAN OF CARE Activity Details Follow Up 3 Weeks Reason: VITAL SIGNS Height 74 in 2016-10-28 Weight 211.9 lbs 2016-10-28 Temperature 98.6 degrees Fahrenheit 2016-10-28 Heart Rate 88 bpm 2016-10-28 Respiratory Rate 20 2016-10-28 BMI 27.20 kg/m2 2016-10-28 Blood pressure systolic 180 mmHg 2016-10-28 Blood pressure diastolic 140 mmHg 2016-10-28 MEDICATIONS Medication Instructions Dosage Frequency Start Date End Date Duration Status Metoprolol Tartrate 50 mg Orally Twice a day 1 tablet with food 12h Mar 30 days Active Blood Pressure Monitor 1 as directed Mar, Active Amlodipine Besylate 10 mg Orally Once a day 1 tablet 24h Mar, 30 day(s) Active RESULTS No Results PROCEDURES No Known procedures IMMUNIZATIONS No Known Immunizations MEDICAL (GENERAL) HISTORY Type Description Date Medical History hypertension Hospitalization History hypertension 2014
--- OUTSIDE RECORDS SUMMARY | 2018-04-04 14:24 | XMS REPORT ---
Author Author JAYME ARREDONDO Organization [facility] Address [address] [place] [address] Care Team Providers Care Rug Underlay Machine Operator Name Role Phone JAYME ARREDONDO Unavailable PROBLEMS Type Condition ICD9-CM Code PSF29-PG Code Onset Dates Condition Status SNOMED Code Problem Chronic kidney disease, unspecified CKD stage N18.9 Active 419353914 Problem Accelerated hypertension I10 Active 17642527 Problem Hypertension, essential I10 Active 01123052 ALLERGIES No Known Allergies SOCIAL HISTORY Never Assessed PLAN OF CARE Activity Details Follow Up Regular appt with Damien Reason: VITAL SIGNS Height 74 in 2017-02-06 Weight 211.9 lbs 2017-02-06 Temperature 98.4 degrees Fahrenheit 2017-02-06 Heart Rate 80 bpm 2017-02-06 Respiratory Rate 20 2017-02-06 BMI 27.20 kg/m2 2017-02-06 Blood pressure systolic 164 mmHg 2017-02-06 Blood pressure diastolic 120 mmHg 2017-02-06 MEDICATIONS Medication Instructions Dosage Frequency Start Date End Date Duration Status Cardura 4 MG Orally Once a day, hs 1 tablet January, 30 day(s) Active Lisinopril-Hydrochlorothiazide 20-12.5 MG Orally Once a day 2 tablets 24h Nov, 30 day(s) Active Ambien 10 mg Orally Once a day 1 tablet at bedtime as needed 24h Nov, Active Amlodipine Besylate 10 mg Orally Once a day 1 tablet 24h Mar, 30 day(s) Active Blood Pressure Monitor 1 as directed Mar, Active RESULTS No Results PROCEDURES No Known procedures IMMUNIZATIONS No Known Immunizations MEDICAL (GENERAL) HISTORY Type Description Date Medical History hypertension Hospitalization History hypertension 2014
--- OUTSIDE RECORDS SUMMARY | 2018-04-04 14:24 | XMS REPORT ---
Author Author BYRON HERNÁNDEZ [facility] Address [address] [place] [address] Care Team Providers Care Roller Checker Name Role Phone BYRON HERNÁNDEZ Unavailable PROBLEMS Type Condition ICD9-CM Code ILW76-VA Code Onset Dates Condition Status SNOMED Code Problem Chronic kidney disease, unspecified CKD stage N18.9 Active 937212384 Problem Accelerated hypertension I10 Active 66370422 Problem Hypertension, essential I10 Active 20407367 ALLERGIES No Known Allergies SOCIAL HISTORY Never Assessed PLAN OF CARE Activity Details Follow Up 4 Weeks Reason:htn VITAL SIGNS Height 74 in 2016-11-24 Weight 217.3 lbs 2016-11-24 Temperature 97.8 degrees Fahrenheit 2016-11-24 Heart Rate 78 bpm 2016-11-24 Respiratory Rate 20 2016-11-24 BMI 27.90 kg/m2 2016-11-24 Blood pressure systolic 180 mmHg 2016-11-24 Blood pressure diastolic 98 mmHg 2016-11-24 MEDICATIONS Medication Instructions Dosage Frequency Start Date End Date Duration Status Lisinopril-Hydrochlorothiazide 20-12.5 MG Orally Once a day 2 tablets 24h Nov, 30 day(s) Active Amlodipine Besylate 10 mg Orally Once a day 1 tablet 24h Mar, 30 day(s) Active Blood Pressure Monitor 1 as directed Mar, Active Ambien 10 mg Orally Once a day 1 tablet at bedtime as needed 24h Nov, Active RESULTS No Results PROCEDURES No Known procedures IMMUNIZATIONS No Known Immunizations MEDICAL (GENERAL) HISTORY Type Description Date Medical History hypertension Hospitalization History hypertension 2014
--- OUTSIDE RECORDS SUMMARY | 2018-04-04 14:25 | XMS REPORT | Continuity of Care Document ---
Author Author [facility] Organization [facility] Address Unknown Phone Unavailable Allergies Active Description Code Type Severity Reaction Onset Reported/Identified Relationship to Patient Clinical Status Yes No Known Drug Allergies [id number] Drug Allergy Unknown N/A 05/01/2014 Medications There is no data. Problems Date Dx Coded Attending Type Code Diagnosis Diagnosed By 05/01/2014 BYRON GAONA DO Ot 305.1 TOBACCO USE DISORDER 05/01/2014 BYRON GAONA DO Ot 305.90 DRUG ABUSE NEC-UNSPEC 05/01/2014 BYRON GAONA DO Ot 401.9 HYPERTENSION NOS 05/01/2014 BYRON GAONA DO Ot 486 PNEUMONIA, ORGANISM NOS 05/01/2014 BYRON GAONA DO Ot 786.2 COUGH 03/10/2015 RON LOPEZ GREASE MAKER Ot 785.6 03/10/2015 RON LOPEZ GREASE MAKER Ot 793.11 03/10/2015 RON LOPEZ GREASE MAKER Ot 785.6 03/10/2015 RON LOPEZ GREASE MAKER Ot 793.11 03/11/2015 PETER REGAN MD Ot 305.1 TOBACCO USE DISORDER 03/11/2015 PETER REGAN MD Ot 305.20 CANNABIS ABUSE-UNSPEC 03/11/2015 PETER REGAN MD Ot 401.0 MALIGNANT HYPERTENSION 03/11/2015 PETER REGAN MD Ot 786.50 CHEST PAIN NOS 03/11/2015 PETER REGAN MD Ot 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 PULMONARY NODULE 03/11/2015 PETER REGAN MD Ot V15.81 HX OF PAST NONCOMPLIANCE 03/11/2015 PETER REGAN MD Ot 305.1 03/11/2015 PETER REGAN MD Ot 305.20 03/11/2015 PETER REGAN MD Ot 401.0 03/11/2015 PETER REGAN MD Ot 786.50 03/11/2015 PETER REGAN MD Ot 793.11 03/11/2015 PETER REGAN MD Ot V15.81 03/23/2015 RON LOPEZ GREASE MAKER Ot 785.6 03/23/2015 RON LOPEZ GREASE MAKER Ot 793.11 10/25/2016 PAKO ESCAMILLA Ot I10 ESSENTIAL (PRIMARY) HYPERTENSION 10/25/2016 PAKO ESCAMILLA Ot I12.9 HYPERTENSIVE CHRONIC KIDNEY DISEASE W ST 10/25/2016 PAKO ESCAMILLA Ot N18.9 CHRONIC KIDNEY DISEASE, UNSPECIFIED 10/25/2016 PAKO ESCAMILLA Ot R91.8 OTHER NONSPECIFIC ABNORMAL FINDING OF CLARA 10/25/2016 RON LOPEZ GREASE MAKER Ot 785.6 ENLARGEMENT LYMPH NODES 10/25/2016 RON LOPEZ GREASE MAKER Ot 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 PULMONARY NODULE 10/25/2016 ELIGIO FLORES PATIENT INTAKE REPRESENTATIVE Ot 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 PULMONARY NODULE 10/25/2016 RON LOPEZ GREASE MAKER Ot 785.6 ENLARGEMENT LYMPH NODES 10/25/2016 RON LOPEZ GREASE MAKER Ot 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 PULMONARY NODULE 10/25/2016 ELIGIO FLORES PATIENT INTAKE REPRESENTATIVE Ot 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 PULMONARY NODULE 10/26/2016 PAKO ESCAMILLA Ot I10 ESSENTIAL (PRIMARY) HYPERTENSION 10/26/2016 PAKO ESCAMILLA Ot I12.9 HYPERTENSIVE CHRONIC KIDNEY DISEASE W ST 10/26/2016 PAKO ESCAMILLA Ot N18.9 CHRONIC KIDNEY DISEASE, UNSPECIFIED 10/26/2016 PAKO ESCAMILLA Ot R91.8 OTHER NONSPECIFIC ABNORMAL FINDING OF CLARA 11/02/2016 PAKO ESCAMILLA Ot I10 ESSENTIAL (PRIMARY) HYPERTENSION 11/02/2016 PAKO ESCAMILLA Ot I12.9 HYPERTENSIVE CHRONIC KIDNEY DISEASE W ST 11/02/2016 PAKO ESCAMILLA Ot N18.9 CHRONIC KIDNEY DISEASE, UNSPECIFIED 11/02/2016 PAKO ESCAMILLA Ot R91.8 OTHER NONSPECIFIC ABNORMAL FINDING OF CLARA 01/31/2017 RON LOPEZ GREASE MAKER Ot 785.6 ENLARGEMENT LYMPH NODES 01/31/2017 RON LOPEZ GREASE MAKER Ot 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 PULMONARY NODULE 01/31/2017 ELIGIO FLORES PATIENT INTAKE REPRESENTATIVE Ot 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 PULMONARY NODULE 01/31/2017 JAMES DO, BOBBY K Ot F12.90 CANNABIS USE, UNSPECIFIED, UNCOMPLICATED 01/31/2017 JAMES DO, BOBBY K Ot F17.210 NICOTINE DEPENDENCE, CIGARETTES, UNCOMPL 01/31/2017 JAMES DO, BOBBY K Ot I10 ESSENTIAL (PRIMARY) HYPERTENSION 01/31/2017 JAMES DO, BOBBY K Ot I16.0 HYPERTENSIVE URGENCY 01/31/2017 JAMES DO, BOBBY K Ot N28.9 DISORDER OF KIDNEY AND URETER, UNSPECIFI 01/31/2017 JAMES DO, BOBBY K Ot Z79.899 OTHER [facility] (CURRENT) DRUG THERAPY 02/01/2017 JAMES DO, BOBBY K Ot F12.90 CANNABIS USE, UNSPECIFIED, UNCOMPLICATED 02/01/2017 JAMES DO, BOBBY K Ot F17.210 NICOTINE DEPENDENCE, CIGARETTES, UNCOMPL 02/01/2017 JAMES DO, BOBBY K Ot I10 ESSENTIAL (PRIMARY) HYPERTENSION 02/01/2017 JAMES DO, BOBBY K Ot I16.0 HYPERTENSIVE URGENCY 02/01/2017 JAMES DO, BOBBY K Ot N28.9 DISORDER OF KIDNEY AND URETER, UNSPECIFI 02/01/2017 JAMES DO, BOBBY K Ot Z79.899 OTHER [facility] (CURRENT) DRUG THERAPY 02/02/2017 JAMES DO, BOBBY K Ot F12.90 CANNABIS USE, UNSPECIFIED, UNCOMPLICATED 02/02/2017 JAMES DO, BOBBY K Ot F17.210 NICOTINE DEPENDENCE, CIGARETTES, UNCOMPL 02/02/2017 JAMES DO, BOBBY K Ot I10 ESSENTIAL (PRIMARY) HYPERTENSION 02/02/2017 JAMES DO, BOBBY K Ot I16.0 HYPERTENSIVE URGENCY 02/02/2017 JAMES DO, BOBBY K Ot N28.9 DISORDER OF KIDNEY AND URETER, UNSPECIFI 02/02/2017 JAMES DO, BOBBY K Ot Z79.899 OTHER [employer] (CURRENT) DRUG THERAPY Procedures There is no data. Results Test Result Range Complete blood count (CBC) with automated white blood cell (WBC) differential - 10/25/16 14:26 Blood leukocytes automated count (number/volume) 5.1 10*3/uL 4.3-11.0 Blood erythrocytes automated count (number/volume) 5.59 10*6/uL 4.35-5.85 Venous blood hemoglobin measurement (mass/volume) 17.1 g/dL 13.3-17.7 Blood hematocrit (volume fraction) 49 % 40-54 Automated erythrocyte mean corpuscular volume 88 [foz_us] 80-99 Automated erythrocyte mean corpuscular hemoglobin (mass per erythrocyte) 31 pg 25-34 Automated erythrocyte mean corpuscular hemoglobin concentration measurement ( mass/volume) 35 g/dL 32-36 Automated erythrocyte distribution width ratio 13.2 % 10.0-14.5 Automated blood platelet count (count/volume) 273 10*3/uL 130-400 Automated blood platelet mean volume measurement 8.7 [foz_us] 7.4-10.4 Automated blood neutrophils/100 leukocytes 61 % 42-75 Automated blood lymphocytes/100 leukocytes 30 % 12-44 Blood monocytes/100 leukocytes 6 % 0-12 Automated blood eosinophils/100 leukocytes 3 % 0-10 Automated blood basophils/100 leukocytes 1 % 0-10 Blood neutrophils automated count (number/volume) 3.1 10*3 1.8-7.8 Blood lymphocytes automated count (number/volume) 1.5 10*3 1.0-4.0 Blood monocytes automated count (number/volume) 0.3 10*3 0.0-1.0 Automated eosinophil count 0.2 10*3/uL 0.0-0.3 Automated blood basophil count (count/volume) 0.0 10*3/uL 0.0-0.1 PT panel in platelet poor plasma by coagulation assay - 10/25/16 14:26 Prothrombin time (PT) in platelet poor plasma by coagulation assay 14.4 s 12.2-14.7 INR in platelet poor plasma or blood by coagulation assay 1.2 0.8-1.4 Activated partial thromboplastin time (aPTT) in platelet poor plasma bycoagulation assay - 10/25/16 14:26 Activated partial thromboplastin time (aPTT) in platelet poor plasma bycoagulation assay 30 s 24-35 Fibrin D-dimer FEU measurement in platelet poor plasma (mass/volume) - 14:26 Fibrin D-dimer FEU measurement in platelet poor plasma (mass/volume) < ug/mL 0.00-0.49 Comprehensive metabolic panel - 10/25/16 14:26 Serum or plasma sodium measurement (moles/volume) 139 mmol/L 135-145 Serum or plasma potassium measurement (moles/volume) 4.0 mmol/L 3.6-5.0 Serum or plasma chloride measurement (moles/volume) 106 mmol/L 98-107 Carbon dioxide 28 mmol/L 21-32 Serum or plasma anion gap determination (moles/volume) 5 mmol/L 5-14 Serum or plasma urea nitrogen measurement (mass/volume) 20 mg/dL 7-18 Serum or plasma creatinine measurement (mass/volume) 1.65 mg/dL 0.60-1.30 Serum or plasma urea nitrogen/creatinine mass ratio 12 NRG Serum or plasma creatinine measurement with calculation of estimated glomerular filtration rate 60 NRG Serum or plasma glucose measurement (mass/volume) 76 mg/dL 70-105 Serum or plasma calcium measurement (mass/volume) 9.3 mg/dL 8.5-10.1 Serum or plasma total bilirubin measurement (mass/volume) 0.4 mg/dL 0.1-1.0 Serum or plasma alkaline phosphatase measurement (enzymatic activity/volume) 52 U/L 40-136 Serum or plasma aspartate aminotransferase measurement (enzymatic activity/ volume) 23 U/L 5-34 Serum or plasma alanine aminotransferase measurement (enzymatic activity/volume ) 45 U/L 0-55 Serum or plasma protein measurement (mass/volume) 7.4 g/dL 6.4-8.2 Serum or plasma albumin measurement (mass/volume) 4.6 g/dL 3.2-4.5 Magnesium - 10/25/16 14:26 Magnesium 2.2 mg/dL 1.8-2.4 Serum or plasma creatine kinase measurement (enzymatic activity/volume) - 10/25 14:26 Serum or plasma creatine kinase measurement (enzymatic activity/volume) 151 U/L 30-200 Serum or plasma creatine kinase MB measurement (enzymatic activity/volume) - 14:26 Serum or plasma creatine kinase MB measurement (enzymatic activity/volume) 1.2 ng/mL <6.6 Serum or plasma troponin i.cardiac measurement (mass/volume) - 10/25/16 14:26 Serum or plasma troponin i.cardiac measurement (mass/volume) < ng/ mL <0.30 Myoglobin, serum - 10/25/16 14:26 Myoglobin, serum 43.9 ng/mL 10.0-92.0 Complete blood count (CBC) with automated white blood cell (WBC) differential - 01/31/17 08:50 Blood leukocytes automated count (number/volume) 5.0 10*3/uL 4.3-11.0 Blood erythrocytes automated count (number/volume) 5.44 10*6/uL 4.35-5.85 Venous blood hemoglobin measurement (mass/volume) 16.7 g/dL 13.3-17.7 Blood hematocrit (volume fraction) 48 % 40-54 Automated erythrocyte mean corpuscular volume 88 [foz_us] 80-99 Automated erythrocyte mean corpuscular hemoglobin (mass per erythrocyte) 31 pg 25-34 Automated erythrocyte mean corpuscular hemoglobin concentration measurement ( mass/volume) 35 g/dL 32-36 Automated erythrocyte distribution width ratio 12.9 % 10.0-14.5 Automated blood platelet count (count/volume) 303 10*3/uL 130-400 Automated blood platelet mean volume measurement 8.8 [foz_us] 7.4-10.4 Automated blood neutrophils/100 leukocytes 64 % 42-75 Automated blood lymphocytes/100 leukocytes 25 % 12-44 Blood monocytes/100 leukocytes 6 % 0-12 Automated blood eosinophils/100 leukocytes 3 % 0-10 Automated blood basophils/100 leukocytes 1 % 0-10 Blood neutrophils automated count (number/volume) 3.2 10*3 1.8-7.8 Blood lymphocytes automated count (number/volume) 1.3 10*3 1.0-4.0 Blood monocytes automated count (number/volume) 0.3 10*3 0.0-1.0 Automated eosinophil count 0.2 10*3/uL 0.0-0.3 Automated blood basophil count (count/volume) 0.1 10*3/uL 0.0-0.1 PT panel in platelet poor plasma by coagulation assay - 01/31/17 08:50 Prothrombin time (PT) in platelet poor plasma by coagulation assay 14.4 s 12.2-14.7 INR in platelet poor plasma or blood by coagulation assay 1.2 0.8-1.4 Activated partial thromboplastin time (aPTT) in platelet poor plasma bycoagulation assay - 01/31/17 08:50 Activated partial thromboplastin time (aPTT) in platelet poor plasma bycoagulation assay 30 s 24-35 Comprehensive metabolic panel - 01/31/17 08:50 Serum or plasma sodium measurement (moles/volume) 140 mmol/L 135-145 Serum or plasma potassium measurement (moles/volume) 4.3 mmol/L 3.6-5.0 Serum or plasma chloride measurement (moles/volume) 109 mmol/L 98-107 Carbon dioxide 21 mmol/L 21-32 Serum or plasma anion gap determination (moles/volume) 10 mmol/L 5-14 Serum or plasma urea nitrogen measurement (mass/volume) 15 mg/dL 7-18 Serum or plasma creatinine measurement (mass/volume) 1.75 mg/dL 0.60-1.30 Serum or plasma urea nitrogen/creatinine mass ratio 9 NRG Serum or plasma creatinine measurement with calculation of estimated glomerular filtration rate 56 NRG Serum or plasma glucose measurement (mass/volume) 86 mg/dL 70-105 Serum or plasma calcium measurement (mass/volume) 9.7 mg/dL 8.5-10.1 Serum or plasma total bilirubin measurement (mass/volume) 0.5 mg/dL 0.1-1.0 Serum or plasma alkaline phosphatase measurement (enzymatic activity/volume) 44 U/L 40-136 Serum or plasma aspartate aminotransferase measurement (enzymatic activity/ volume) 27 U/L 5-34 Serum or plasma alanine aminotransferase measurement (enzymatic activity/volume ) 28 U/L 0-55 Serum or plasma protein measurement (mass/volume) 7.3 g/dL 6.4-8.2 Serum or plasma albumin measurement (mass/volume) 4.4 g/dL 3.2-4.5 Magnesium - 01/31/17 08:50 Magnesium 2.4 mg/dL 1.8-2.4 Serum or plasma creatine kinase measurement (enzymatic activity/volume) - 01/31 08:50 Serum or plasma creatine kinase measurement (enzymatic activity/volume) 274 U/L 30-200 Serum or plasma lithium measurement (moles/volume) - 01/31/17 08:50 BNP level 32.4 pg/mL <100.0 Serum or plasma creatine kinase MB measurement (enzymatic activity/volume) - 08:50 Serum or plasma creatine kinase MB measurement (enzymatic activity/volume) 2.0 ng/mL <6.6 Serum or plasma troponin i.cardiac measurement (mass/volume) - 01/31/17 08:50 Serum or plasma troponin i.cardiac measurement (mass/volume) < ng/ mL <0.30 Serum or plasma thyrotropin measurement by detection limit <=0.05 miu/l (units/ volume) - 01/31/17 08:50 Serum or plasma thyrotropin measurement by detection limit <=0.05 miu/l (units/ volume) 1.36 u[iU]/mL 0.35-4.94 Urine drug screening test - 01/31/17 09:39 Urine phencyclidine detection by screening method NEGATIVE NEGATIVE Urine benzodiazepines detection by screening method NEGATIVE NEGATIVE Urine cocaine detection NEGATIVE NEGATIVE Urine amphetamines detection by screening method NEGATIVE NEGATIVE Urine methamphetamine detection by screening method NEGATIVE NEGATIVE Urine cannabinoids detection by screening method POSITIVE NEGATIVE Urine opiates detection by screening method NEGATIVE NEGATIVE Urine barbiturates detection NEGATIVE NEGATIVE Screening urine tricyclic antidepressants detection NEGATIVE NEGATIVE Urine methadone detection by screening method NEGATIVE NEGATIVE Urine oxycodone detection NEGATIVE NEGATIVE Urine propoxyphene detection NEGATIVE NEGATIVE Complete urinalysis with reflex to culture - 01/31/17 09:39 Urine color determination YELLOW NRG Urine clarity determination CLEAR NRG Urine pH measurement by test strip 6 5-9 Specific gravity of urine by test strip 1.010 1.016- 1.022 Urine protein assay by test strip, semi-quantitative NEGATIVE NEGATIVE Urine glucose detection by automated test strip NEGATIVE NEGATIVE Erythrocytes detection in urine sediment by light microscopy NEGATIVE NEGATIVE Urine ketones detection by automated test strip NEGATIVE NEGATIVE Urine nitrite detection by test strip NEGATIVE NEGATIVE Urine total bilirubin detection by test strip NEGATIVE NEGATIVE Urine urobilinogen measurement by automated test strip (mass/volume) NORMAL NORMAL Urine leukocyte esterase detection by dipstick NEGATIVE NEGATIVE Automated urine sediment erythrocyte count by microscopy (number/high power field) NONE NRG Automated urine sediment leukocyte count by microscopy (number/high power field ) NONE NRG Bacteria detection in urine sediment by light microscopy NEGATIVE NRG Squamous epithelial cells detection in urine sediment by light microscopy RARE NRG Crystals detection in urine sediment by light microscopy NONE NRG Casts detection in urine sediment by light microscopy PRESENT NRG Mucus detection in urine sediment by light microscopy NEGATIVE NRG Complete urinalysis with reflex to culture NO NRG Hyaline casts detection in urine sediment by light microscopy RARE NRG Encounters ACCT No. Visit Date/Time Discharge Status Pt. Type Provider Facility Loc./Unit Complaint [id number] 01/31/2017 08:08:00 01/31/2017 11:10:00 DIS Emergency BOBBY RAMIREZ DO [facility] ER ELEVATED BLOOD PRESSURE [id number] 10/25/2016 13:17:00 10/25/2016 15:45:00 DIS Emergency PAKO ESCAMILLA [facility] ER ELEVATED BP [id number] 03/23/2015 12:40:00 03/23/2015 23:59:59 CLS Outpatient ELIGIO FLORES APRN [facility] RAD SOLITARY PULMONARY NODULE [id number] 03/10/2015 16:35:00 03/11/2015 12:40:00 DIS Inpatient PETER REGAN MD [facility] CSD CHEST PAIN;UNCONTROLLED HTN [id number] 05/01/2014 11:05:00 05/01/2014 13:51:00 DIS Emergency BYRON GAONA DO [facility] ER HIGH BP [id number] 11/14/2013 14:42:00 11/14/2013 23:59:59 CLS Outpatient RON LOPEZ [facility] RAD NODULE [id number] 04/04/2018 14:13:00 ACT Emergency RACHEL MCKENZIE MD [facility] ER BP HIGH
[2018-04-04] MEDS ORDERED: niCARdipine IV FOR DRIP 50 MG KIT ONE (14:49)
[2018-04-04] MEDS ORDERED: NS (IVPB) 250 ML ONE (14:50)
[2018-04-04 14:57] LABS: BASOPHILS % (AUTO) 0 % (0-10); EOSINOPHILS % (AUTO) 1 % (0-10); HEMATOCRIT 28 % (40-54); HEMOGLOBIN 10.4 G/DL (13.3-17.7); LYMPHOCYTES # (AUTO) 0.8 X 10^3 (1.0-4.0); LYMPHOCYTES % (AUTO) 11 % (12-44); MEAN CORPUSCULAR HEMOGLOBIN 32 PG (25-34); MEAN CORPUSCULAR HGB CONC 38 G/DL (32-36); MEAN CORPUSCULAR VOLUME 84 FL (80-99); MEAN PLATELET VOLUME 11.4 FL (7.4-10.4); MONOCYTES # (AUTO) 0.7 X 10^3 (0.0-1.0); MONOCYTES % (AUTO) 9 % (0-12); NEUTROPHILS # (AUTO) 6.3 X 10^3 (1.8-7.8); NEUTROPHILS % (AUTO) 80 % (42-75); PLATELET COUNT 82 10^3/uL (130-400); WHITE BLOOD COUNT 7.8 10^3/uL (4.3-11.0)
[2018-04-04] MEDS ORDERED: niCARdipine IV 50 MG in NS (IVPB) 230 ML IV SCH (15:00)
[2018-04-04] MEDS ORDERED: meTOprolol SUCCINATE 100 MG (TOPROL XL) TAB PO ONE (15:00)
[2018-04-04 15:01] LABS: INR 1.2 (0.8-1.4); PROTHROMBIN TIME PATIENT 15.4 SEC (12.2-14.7)
[2018-04-04 15:08] LABS: ALBUMIN 3.9 GM/DL (3.2-4.5); BILIRUBIN,TOTAL 1.1 MG/DL (0.1-1.0); CALCIUM 8.7 MG/DL (8.5-10.1); CREATININE SERUM 21.57 MG/DL (0.60-1.30); MAGNESIUM 2.1 MG/DL (1.8-2.4); POTASSIUM 3.3 MMOL/L (3.6-5.0); TOTAL PROTEIN 6.3 GM/DL (6.4-8.2)
--- NOTE | 2018-04-04 15:19 | ED Cardiac General ---
History of Present Illness General Chief Complaint: Cardiac/General Problems Stated Complaint: BP HIGH Nursing Triage Note: PT PRESENTS TO ED WITH COMPLAINTS OF BLURRED VISION STARTING TODAY. PT REPORTS N/V X 3 DAYS. PT WENT TO [facility] TODAY AND WAS SENT TO ED FOR HYPERTENSION -261/141. PT REPORTS HE HAS NOT TAKEN HIS LISINOPRIL OR AMLODIPINE SINCE SEPTEMBER. Source: patient Exam Limitations: no limitations History of Present Illness Date Seen by Provider: Apr 04, 2018 Time Seen by Provider: 14:38 Initial Comments Here with report of blurred vision today and was noted to have markedly elevated blood pressure at the clinic at 268/162. They did give clonidine 0.1 by mouth and that dropped his blood pressure to 180/138. Denies chest pain but apparently has had some recent nausea and vomiting. He was sent here for further evaluation and treatment given the presenting signs. Does have known history of hypertension and was previously on 3 blood pressure medicines but stopped taking them last year. Denies chest pain. Denies breathing problems. Timing/Duration: 3-4 days Severity: mild Location: other (blurred vision) Activities at Onset: none Prior CP/Workup: no prior cardiac workup NTG SL SANDWICH ARTIST: No ASA po SANDWICH ARTIST: No Associated Systoms: No Chest Pain, No Fever/Chills, No Headaches, No Nausea/ Vomiting, No Shortness of Air, No Weakness Allergies and Home Medications Allergies Coded Allergies: No Known Drug Allergies (Unverified , 05/01/14) Home Medications [Amlodipine Besylate] 10 MG TABLET, 10 MG PO DAILY Prescribed by: PETER REGAN on 03/11/15 1210 Patient Home Medication List Home Medication List Reviewed: Yes Review of Systems Constitutional: see HPI; No chills, No fever EENTM: Blurred Vision; No Throat Pain Respiratory: Denies Cough, Denies Shortness of Air Cardiovascular: Denies Chest Pain, Denies Edema; Lightheadedness Gastrointestinal: Denies Abdominal Pain, Denies Nausea, Denies Vomiting Genitourinary: No Symptoms Reported Musculoskeletal: no symptoms reported Skin: no symptoms reported Psychiatric/Neurological: No Symptoms Reported Endocrine: No Symptoms Reported All Other Systems Reviewed Negative Unless Noted: Yes Past Wbjzpkc-Ezdrjp-Hputwu Hx Past Med/Social Hx: Reviewed Nursing Past Med/Soc Hx Patient Social History Alcohol Use: Denies Use Recreational Drug Use: Yes Drug of Choice: MARIJUANA Smoking Status: Current Everyday Smoker Type Used: Cigarettes Recent Foreign Travel: No Contact w/Someone Who Travel: No Recent Infectious Disease Expo: No Recent Hopitalizations: No Physical Abuse: No Sexual Abuse: No Mistreated: No Fear: No Immunizations Up To Date Tetanus Booster (TDap): More than 5yrs Past Medical History Surgeries: No Respiratory: No Cardiac: Yes Hypertension Neurological: No Reproductive Disorders: No Genitourinary: No Gastrointestinal: No Musculoskeletal: No Endocrine: No HEENT: No Cancer: No Psychosocial: No Nursing Suicide Risk Score: 0 Integumentary: No Blood Disorders: No Adverse Reaction/Blood Tranf: No Family Medical History Reviewed Nursing Family Hx Cancer, Hypertension Physical Exam Vital Signs Vital Signs - First Documented 04/04/18 14:50 Temp 98.5 Pulse 111 Resp 18 B/P (MAP) 261/167 (198) Pulse Ox 100 Capillary Refill : Less Than 3 Seconds Height, Weight, BMI Height: 6'2.00" Weight: 189lbs. 0.1oz. 85.167497bx; BMI Method:Stated General Appearance: No Apparent Distress, WD/WN HEENT: PERRL/EOMI, Pharynx Normal Neck: Non Tender, Supple Respiratory: Lungs Clear, Normal Breath Sounds Cardiovascular: Regular Rate, Rhythm, No Murmur Gastrointestinal: Non Tender, Soft Extremity: Normal Range of Motion, Non Tender Neurologic/Psychiatric: Alert, Oriented x3 Skin: Normal Color, Warm/Dry Progress/Results/Core Measures Results/Orders Lab Results Laboratory Tests Test 04/04/18 14:43 Range/Units White Blood Count 7.8 4.3-11.0 10^3/uL Red Blood Count 3.30 L 4.35-5.85 10^6/uL Hemoglobin 10.4 L 13.3-17.7 G/DL Hematocrit 28 L 40-54 % Mean Corpuscular Volume 84 80-99 FL Mean Corpuscular Hemoglobin 32 25-34 PG Mean Corpuscular Hemoglobin Concent 38 H 32-36 G/DL Red Cell Distribution Width 13.0 10.0-14.5 % Platelet Count 82 L 130-400 10^3/uL Mean Platelet Volume 11.4 H 7.4-10.4 FL Neutrophils (%) (Auto) 80 H 42-75 % Lymphocytes (%) (Auto) 11 L 12-44 % Monocytes (%) (Auto) 9 0-12 % Eosinophils (%) (Auto) 1 0-10 % Basophils (%) (Auto) 0 0-10 % Neutrophils # (Auto) 6.3 1.8-7.8 X 10^3 Lymphocytes # (Auto) 0.8 L 1.0-4.0 X 10^3 Monocytes # (Auto) 0.7 0.0-1.0 X 10^3 Eosinophils # (Auto) 0.0 0.0-0.3 10^3/uL Basophils # (Auto) 0.0 0.0-0.1 10^3/uL Prothrombin Time 15.4 H 12.2-14.7 SEC INR Comment 1.2 0.8-1.4 Activated Partial Thromboplast Time 29 24-35 SEC Sodium Level 131 L 135-145 MMOL/L Potassium Level 3.3 L 3.6-5.0 MMOL/L Chloride Level 96 L 98-107 MMOL/L Carbon Dioxide Level 16 L 21-32 MMOL/L Anion Gap 19 H 5-14 MMOL/L Blood Urea Nitrogen 118 *H 7-18 MG/DL Creatinine 21.57 H 0.60-1.30 MG/DL Estimat Glomerular Filtration Rate 3 BUN/Creatinine Ratio 5 Glucose Level 99 70-105 MG/DL Calcium Level 8.7 8.5-10.1 MG/DL Magnesium Level 2.1 1.8-2.4 MG/DL Total Bilirubin 1.1 H 0.1-1.0 MG/DL Aspartate Amino Transf (AST/SGOT) 26 5-34 U/L Alanine Aminotransferase (ALT/SGPT) 16 0-55 U/L Alkaline Phosphatase 35 L 40-136 U/L Myoglobin 1297.2 H 10.0-92.0 NG/ML Troponin I 0.71 *H <0.30 NG/ML Total Protein 6.3 L 6.4-8.2 GM/DL Albumin 3.9 3.2-4.5 GM/DL My Orders Orders - RACHEL MCKENZIE MD Metoprolol Succinate (Xl) Tab (Toprol Xl (04/04/18 15:00) Cbc With Automated Diff (04/04/18 14:46) Magnesium (04/04/18 14:46) Chest 1 View, Ap/Pa Only (04/04/18 14:46) Ekg Tracing (04/04/18 14:46) Cardiac Profile 1 (04/04/18 14:46) Comprehensive Metabolic Panel (04/04/18 14:46) Myoglobin Serum (04/04/18 14:46) Protime With Inr (04/04/18 14:46) Partial Thromboplastin Time (04/04/18 14:46) O2 (04/04/18 14:46) Monitor-Rhythm Ecg Trace Only (04/04/18 14:46) Saline Lock/Iv-Start (04/04/18 14:46) Ns (Ivpb) (Sodium C... W/Nicardipine Iv (04/04/18 15:00) Nicardipine Iv For Drip (Cardene I.V. (O (04/04/18 14:49) Ns (Ivpb) (Sodium Chloride 0.9%) (04/04/18 14:50) Ct Head Wo (04/04/18 15:40) Ns Iv 1000 Ml (Sodium Chloride 0.9%) (04/04/18 16:15) Medications Given in ED Current Medications Medications Dose Ordered Sig/Rm Route Start Time Stop Time Status Last Admin Dose Admin Metoprolol Succinate 200 mg ONCE ONCE PO 04/04/18 15:00 04/04/18 15:01 DC 04/04/18 14:58 200 MG Vital Signs/I&O 04/04/18 04/04/18 14:50 16:52 Temp 98.5 Pulse 111 93 Resp 18 16 B/P (MAP) 261/167 (198) 139/96 Pulse Ox 100 98 Blood Pressure Mean: 198 Progress Progress Note : Progress Note Seen and evaluated. IV, labs, EKG and chest x-ray ordered. Toprol-XL 200 mg by mouth ordered and Cardene drip initiated after consultation with cardiology for hypertensive emergency. Initial map to 10. We will adjust Cardene drip for map 130-150 and reassess after labs are complete. Monitor patient. 1520: Elevated BUN and creatinine noted as well as elevated troponin. Due to creatinine severe elevation, patient will require Center capable of dialysis. This is discussed with patient and family verbalize understanding. 1526: I have initiated transfer to [facility] in [facility]. Cardene drip his running a blood pressure 199/144 with heart rate of 94 and O2 sat 100 percent on room air. 1536: I have discussed the case with Dr. Bowen at [facility] in [place], [place]. Case reviewed in entirety. He has accepted the patient for transfer but we are pending an ICU bed. He is recommending continuation of Cardene drip and titrating to diastolic less than 120. Also requesting CT of the head. This will be ordered. All findings concerns including transfer have been discussed with the patient family who agree. Pending transfer. Monitor patient. 1625: We have ICU beds now at [facility]. We are arranging transport. Blood pressure currently 160/ 112 with heart rate of 94 and O2 sat 100 percent on room air. IV fluid at 100 mL an hour of normal saline currently running. Cardene drip remains at 7 mg an hour. Family informed and agree. To go by [facility]. Initial ECG Impression Date: Apr 04, 2018 Initial ECG Impression Time: 14:44 Initial ECG Rate: 111 Initial ECG Rhythm: S.Tach Initial ECG Comparisson: Changed Comment Sinus tachycardia with left atrial abnormality. Left ventricular hypertrophy. No evidence of ST elevation [place]. Unchanged in some morphology from 31 Jan 2017. Interpreted by me. Diagnostic Imaging Diagonstic Imaging: Xray Plain Films/CT/US/NM/MRI: chest Comments [place]IA [place], [place] NAME: JT RIVERA [facility] REC#: [id number] PT STATUS: REG ER : 1985 PHYSICIAN: RACHEL MCKENZIE MD ADMIT DATE: 04/04/18/ER Draft Date of Exam:04/04/18 CHEST 1 VIEW, AP/PA ONLY INDICATION: Nausea and blurred vision. COMPARISON: 01/31/2017. FINDINGS: Upright portable view of the chest is obtained. Heart size is normal. The pulmonary vessels appear unremarkable. No pneumothorax, mediastinal widening or pleural fluid. Lungs are clear. IMPRESSION: Negative chest. Dictated on workstation # [id number] Dict: 04/04/18 1519 Trans: 04/04/18 1524 [facility] [id number] Interpreted by: QUYEN REGAN DO Electronically signed by: Diagonstic Imaging: CT Plain Films/CT/US/NM/MRI: head Comments NAME: JT RIVERA [facility] REC#: [id number] PT STATUS: REG ER : 1985 PHYSICIAN: RACHEL MCKENZIE MD ADMIT DATE: 04/04/18/ER Signed Date of Exam: 04/04/18 CT HEAD WO PROCEDURE: CT head without contrast. TECHNIQUE: Multiple contiguous axial images were obtained through the brain without the use of intravenous contrast. INDICATION: Hypertension. COMPARISON: None. FINDINGS: No acute intracranial hemorrhage, mass effect or edema is seen. Be-white junction is preserved. The ventricles appear normal. No acute focal abnormality is suspected. The paranasal sinuses and mastoids are clear, as visualized. IMPRESSION: No acute intracranial abnormality is demonstrated. Dictated by: Dictated on workstation # [id number] Dict: 04/04/18 1605 Trans: 04/04/18 1617 Interpreted by: QUYEN REGAN DO Electronically signed by: QUYEN REGAN DO 04/04/18 1617 Reviewed: Reviewed by Me Departure Impression Primary Impression: Hypertensive emergency Additional Impressions: Acute renal failure Qualified Codes: N17.9 - Acute kidney failure, unspecified Acute myocardial ischemia Disposition: XFER SHT-TRM HOSP Condition: Stable Transfer Time Spoke to Accepting Phy: 15:36 Transfer Time: 16:25 Transfer Facility: [place], [place], Dr. Bowen accepting Method of Transfer: EMS Departure-Patient Inst. Referrals: [facility] (PCP/Family) Primary Care Physician RACHEL MCKENZIE MD Apr 04, 2018 15:19
--- NOTE | 2018-04-04 15:25 | Diagnostic Imaging Report ---
INDICATION: Nausea and blurred vision. COMPARISON: 01/31/2017. FINDINGS: Upright portable view of the chest is obtained. Heart size is normal. The pulmonary vessels appear unremarkable. No pneumothorax, mediastinal widening or pleural fluid. Lungs are clear. IMPRESSION: Negative chest. Dictated by: Dictated on workstation # [id number]
[2018-04-04 15:30] LABS: MYOGLOBIN SERUM 1297.2 NG/ML (10.0-92.0)
[2018-04-04] MEDS ORDERED: NS IV 1000 ML 1,000 ML IV SCH (16:15)
--- NOTE | 2018-04-04 16:49 | Diagnostic Imaging Report ---
PROCEDURE: CT head without contrast. TECHNIQUE: Multiple contiguous axial images were obtained through the brain without the use of intravenous contrast. INDICATION: Hypertension. COMPARISON: None. FINDINGS: No acute intracranial hemorrhage, mass effect or edema is seen. Be-white junction is preserved. The ventricles appear normal. No acute focal abnormality is suspected. The paranasal sinuses and mastoids are clear, as visualized. IMPRESSION: No acute intracranial abnormality is demonstrated. Dictated by: Dictated on workstation # [id number]
[2018-04-04 16:52] VITALS: BP 139/96
== END 2018-04-04 16:52 | disposition short-term general hospital (02) ==
LOC: EDUNIT# 14:11 → ER 14:13
DX: I16.1 Hypertensive emergency (principal); N17.9 Acute kidney failure, unspecified; I51.3 Intracardiac thrombosis, not elsewhere classified; I10 Essential (primary) hypertension; F12.10 Cannabis abuse, uncomplicated; F17.210 Nicotine dependence, cigarettes, uncomplicated
CPT/HCPCS: 36415; 70450; 71045; 80053; 83735; 83874; 84484; 85025; 85610; 85730; 93005; 93041; 96361; 96365; 96366

== ENCOUNTER 2018-06-12 19:56 | Emergency (ER) | payer MEDICAID, OTHER ==
[~2018-06-12] VITALS: Ht 188 cm; Wt 79.4 kg
--- OUTSIDE RECORDS SUMMARY | 2018-06-12 20:00 | XMS REPORT ---
Author Author MARK GEIGER Organization [facility] Address [address] [place] [address] Care Team Providers Care Communication Electronic Technician Name Role Phone MARK GEIGER Unavailable PROBLEMS Type Condition ICD9-CM Code [id number] Code Onset Dates Condition Status SNOMED Code Problem Chronic kidney disease, unspecified CKD stage N18.9 Active 957480456 Problem Accelerated hypertension I10 Active [id number] Problem Hypertension, essential I10 Active [id number] ALLERGIES No Known Allergies ENCOUNTERS Encounter Location Date Diagnosis [facility] [id number] [place] [phone] Mar, Hypertension, essential I10 [facility] [id number] [place] [phone] Apr, Chronic kidney disease, unspecified CKD stage N18.9 [facility] [id number] [place] [phone] Feb, Hypertension, essential I10 and Chronic kidney disease, unspecified CKD stage N18.9 [facility] [id number] [place] [phone] January, Accelerated hypertension I10 and Chronic kidney disease, unspecified CKD stage N18.9 [facility] [id number] [place] [phone] Nov, Hypertension, essential I10 [facility] [id number] [place] [phone] Nov, [facility] [id number] [place] [phone] 10 Oct, 2016 Accelerated hypertension I10 [facility] [address] [phone] Oct, [facility] [address] [facility] [id number] [place] [address] Aug, [facility] [address] [facility] [id number] [address] Mar, Essential hypertension I10 and Anxiety F41.9 [facility] [address] [facility] [id number], [place] [address] Mar, Hypertension, essential I10 IMMUNIZATIONS No Known Immunizations SOCIAL HISTORY Never Assessed REASON FOR VISIT Vomiting, nausea and diahrrea x 3-4 days. The patient is also having blurry vision that started today.--SIA Chaudhari PLAN OF CARE Activity Details Follow Up w/ Damien Lagunas Reason:Hypertensive crisis VITAL SIGNS Height 74 in 2018-04-04 Weight 189 lbs 2018-04-04 Temperature 99.0 degrees Fahrenheit 2018-04-04 Heart Rate 116 bpm 2018-04-04 Respiratory Rate 18 2018-04-04 BMI 24.26 kg/m2 2018-04-04 Blood pressure systolic 270 mmHg 2018-04-04 Blood pressure diastolic 160 mmHg 2018-04-04 MEDICATIONS Medication Instructions Dosage Frequency Start Date End Date Duration Status Lisinopril-Hydrochlorothiazide 20-12.5 MG Orally Once a day 2 tablets 24h Nov, 30 day(s) Not-Taking Amlodipine Besylate 10 mg Orally Once a day 1 tablet 24h Mar, 30 day(s) Not-Taking Ambien 10 mg Orally Once a day 1 tablet at bedtime as needed 24h Nov, Not-Taking Blood Pressure Monitor 1 as directed Mar, Not-Taking Cardura 4 MG Orally Once a day, hs 1 tablet January, 30 day(s) Not-Taking RESULTS No Results PROCEDURES No Known procedures INSTRUCTIONS MEDICATIONS ADMINISTERED No Known Medications MEDICAL (GENERAL) HISTORY Type Description Date Medical History hypertension Hospitalization History hypertension 2014
--- OUTSIDE RECORDS SUMMARY | 2018-06-12 20:02 | XMS REPORT | Continuity of Care Document ---
Author Author [facility] Organization [facility] Address Unknown Phone Unavailable Allergies Active Description Code Type Severity Reaction Onset Reported/Identified Relationship to Patient Clinical Status Yes No Known Drug Allergies [id number] Drug Allergy Unknown N/A 05/01/2014 Medications There [...] DO Ot 786.2 COUGH 03/10/2015 RON LOPEZ CONSERVATION EDUCATOR Ot 785.6 03/10/2015 RON LOPEZ CONSERVATION EDUCATOR Ot 793.11 03/10/2015 RON LOPEZ CONSERVATION EDUCATOR Ot 785.6 03/10/2015 RON LOPEZ CONSERVATION EDUCATOR Ot 793.11 03/11/2015 PETER REGAN MD Ot [...] REGAN MD Ot V15.81 03/23/2015 RON LOPEZ CONSERVATION EDUCATOR Ot 785.6 03/23/2015 RON LOPEZ CONSERVATION EDUCATOR Ot 793.11 10/25/2016 PAKO ESCAMILLA Ot I10 ESSENTIAL (PRIMARY) HYPERTENSION 10/25/2016 PAKO ESCAMILLA Ot I12.9 HYPERTENSIVE CHRONIC KIDNEY DISEASE W ST 10/25/2016 PAKO ESCAMILLA Ot N18.9 CHRONIC KIDNEY DISEASE, UNSPECIFIED 10/25/2016 PAKO ESCAMILLA Ot R91.8 OTHER NONSPECIFIC ABNORMAL FINDING OF CLARA 10/25/2016 RON LOPEZ CONSERVATION EDUCATOR Ot 785.6 ENLARGEMENT LYMPH NODES 10/25/2016 RON LOPEZ CONSERVATION EDUCATOR Ot 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 PULMONARY NODULE 10/25/2016 ELIGIO FLORES PING PONG TABLE ASSEMBLER Ot 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 PULMONARY NODULE 10/25/2016 RON LOPEZ CONSERVATION EDUCATOR Ot 785.6 ENLARGEMENT LYMPH NODES 10/25/2016 RON LOPEZ CONSERVATION EDUCATOR Ot 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 PULMONARY NODULE 10/25/2016 ELIGIO FLORES PING PONG TABLE ASSEMBLER Ot 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 PULMONARY NODULE 10/26/2016 PAKO [...] ABNORMAL FINDING OF CLARA 01/31/2017 RON LOPEZ CONSERVATION EDUCATOR Ot 785.6 ENLARGEMENT LYMPH NODES 01/31/2017 RON LOPEZ CONSERVATION EDUCATOR Ot 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 PULMONARY NODULE 01/31/2017 ELIGIO FLORES PING PONG TABLE ASSEMBLER Ot 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 PULMONARY NODULE 01/31/2017 JAMES [...] JAMES DO, BOBBY K Ot Z79.899 OTHER [facility] (CURRENT) DRUG THERAPY 02/01/2017 JAMES DO, BOBBY [...] JAMES DO, BOBBY K Ot Z79.899 OTHER [facility] (CURRENT) DRUG THERAPY 02/02/2017 JAMES DO, BOBBY [...] JAMES DO, BOBBY K Ot Z79.899 OTHER [employer] [facility] (CURRENT) DRUG THERAPY 04/06/2018 MAGALY ORTIZ, RACHEL Hernandez Ot F12.10 CANNABIS ABUSE, UNCOMPLICATED 04/06/2018 RACHEL MCKENZIE MD Ot F17.210 NICOTINE DEPENDENCE, CIGARETTES, UNCOMPL 04/06/2018 RACHEL MCKENZIE MD Ot I10 ESSENTIAL (PRIMARY) HYPERTENSION 04/06/2018 RACHEL MCKENZIE MD Ot I16.1 HYPERTENSIVE EMERGENCY 04/06/2018 MAGALY ORTIZ, RACHEL Hernandze Ot I51.3 INTRACARDIAC THROMBOSIS, NOT ELSEWHERE C 04/06/2018 RACHEL MCKENZIE MD, Ot N17.9 ACUTE KIDNEY FAILURE, UNSPECIFIED 04/06/2018 RACHEL MCKENZIE MD Ot R03.0 ELEVATED BLOOD-PRESSURE READING, W/O CLINT Procedures There is no data. Results Test [...] urine sediment by light microscopy RARE NRG CBC With Differential/Platelet - 02/20/17 09:57 WBC 4.2 x10E3/uL 3.4-10.8 RBC 5.39 x10E6/uL 4.14-5.80 Hemoglobin 16.9 g/dL 12.6-17.7 Hematocrit 48.6 % 37.5-51.0 MCV 90 fL 79-97 MCH 31.4 pg 26.6-33.0 MCHC 34.8 g/dL 31.5-35.7 RDW 13.4 % 12.3-15.4 Platelets 312 x10E3/uL 150-379 Neutrophils 60 % Lymphs 30 % Monocytes 6 % Eos 3 % Basos 1 % Neutrophils (Absolute) 2.5 x10E3/uL 1.4-7.0 Lymphs (Absolute) 1.3 x10E3/uL 0.7-3.1 Monocytes(Absolute) 0.2 x10E3/uL 0.1-0.9 Eos (Absolute) 0.1 x10E3/uL 0.0-0.4 Baso (Absolute) 0.0 x10E3/uL 0.0-0.2 Immature Granulocytes 0 % Immature Grans (Abs) 0.0 x10E3/uL 0.0-0.1 Comp. Metabolic Panel (14) - 02/20/17 09:57 Glucose, Serum 89 mg/dL 65-99 BUN 16 mg/dL 6-20 Creatinine, Serum 1.62 mg/dL 0.76-1.27 eGFR If NonAfricn Am 57 mL/min/1.73 >59 eGFR If Africn Am 65 mL/min/1.73 >59 BUN/Creatinine Ratio 10 9-20 Sodium, Serum 141 mmol/L 134-144 Potassium, Serum 4.8 mmol/L 3.5-5.2 Chloride, Serum 100 mmol/L 96-106 Carbon Dioxide, Total 22 mmol/L 18-29 Calcium, Serum 9.5 mg/dL 8.7-10.2 Protein, Total, Serum 7.0 g/dL 6.0-8.5 Albumin, Serum 4.3 g/dL 3.5-5.5 Globulin, Total 2.7 g/dL 1.5-4.5 A/G Ratio 1.6 1.2-2.2 Bilirubin, Total 0.2 mg/dL 0.0-1.2 Alkaline Phosphatase, S 56 IU/L 39-117 AST (SGOT) 30 IU/L 0-40 ALT (SGPT) 76 IU/L 0-44 Lipid Panel - 02/20/17 09:57 Cholesterol, Total 201 mg/dL 100-199 Triglycerides 166 mg/dL 0-149 HDL Cholesterol 42 mg/dL >39 VLDL Cholesterol Ned 33 mg/dL 5-40 LDL Cholesterol Calc 126 mg/dL 0-99 TSH - 02/20/17 09:57 TSH 2.000 uIU/mL 0.450-4.500 Complete blood count (CBC) with automated white blood cell (WBC) differential - 04/04/18 14:43 Blood leukocytes automated count (number/volume) 7.8 10*3/uL 4.3-11.0 Blood erythrocytes automated count (number/volume) 3.30 10*6/uL 4.35-5.85 Venous blood hemoglobin measurement (mass/volume) 10.4 g/dL 13.3-17.7 Blood hematocrit (volume fraction) 28 % 40-54 Automated erythrocyte mean corpuscular volume 84 [foz_us] 80-99 Automated erythrocyte mean corpuscular hemoglobin (mass per erythrocyte) 32 pg 25-34 Automated erythrocyte mean corpuscular hemoglobin concentration measurement ( mass/volume) 38 g/dL 32-36 Automated erythrocyte distribution width ratio 13.0 % 10.0-14.5 Automated blood platelet count (count/volume) 82 10*3/uL 130-400 Automated blood platelet mean volume measurement 11.4 [foz_us] 7.4-10.4 Automated blood neutrophils/100 leukocytes 80 % 42-75 Automated blood lymphocytes/100 leukocytes 11 % 12-44 Blood monocytes/100 leukocytes 9 % 0-12 Automated blood eosinophils/100 leukocytes 1 % 0-10 Automated blood basophils/100 leukocytes 0 % 0-10 Blood neutrophils automated count (number/volume) 6.3 10*3 1.8-7.8 Blood lymphocytes automated count (number/volume) 0.8 10*3 1.0-4.0 Blood monocytes automated count (number/volume) 0.7 10*3 0.0-1.0 Automated eosinophil count 0.0 10*3/uL 0.0-0.3 Automated blood basophil count (count/volume) 0.0 10*3/uL 0.0-0.1 PT panel in platelet poor plasma by coagulation assay - 04/04/18 14:43 Prothrombin time (PT) in platelet poor plasma by coagulation assay 15.4 s 12.2-14.7 INR in platelet poor plasma or blood by coagulation assay 1.2 0.8-1.4 Activated partial thromboplastin time (aPTT) in platelet poor plasma bycoagulation assay - 04/04/18 14:43 Activated partial thromboplastin time (aPTT) in platelet poor plasma bycoagulation assay 29 s 24-35 Comprehensive metabolic panel - 04/04/18 14:43 Serum or plasma sodium measurement (moles/volume) 131 mmol/L 135-145 Serum or plasma potassium measurement (moles/volume) 3.3 mmol/L 3.6-5.0 Serum or plasma chloride measurement (moles/volume) 96 mmol/L 98-107 Carbon dioxide 16 mmol/L 21-32 Serum or plasma anion gap determination (moles/volume) 19 mmol/L 5-14 Serum or plasma urea nitrogen measurement (mass/volume) 118 mg/dL 7-18 Serum or plasma creatinine measurement (mass/volume) 21.57 mg/dL 0.60-1.30 Serum or plasma urea nitrogen/creatinine mass ratio 5 NRG Serum or plasma creatinine measurement with calculation of estimated glomerular filtration rate 3 NRG Serum or plasma glucose measurement (mass/volume) 99 mg/dL 70-105 Serum or plasma calcium measurement (mass/volume) 8.7 mg/dL 8.5-10.1 Serum or plasma total bilirubin measurement (mass/volume) 1.1 mg/dL 0.1-1.0 Serum or plasma alkaline phosphatase measurement (enzymatic activity/volume) 35 U/L 40-136 Serum or plasma aspartate aminotransferase measurement (enzymatic activity/ volume) 26 U/L 5-34 Serum or plasma alanine aminotransferase measurement (enzymatic activity/volume ) 16 U/L 0-55 Serum or plasma protein measurement (mass/volume) 6.3 g/dL 6.4-8.2 Serum or plasma albumin measurement (mass/volume) 3.9 g/dL 3.2-4.5 Magnesium - 04/04/18 14:43 Magnesium 2.1 mg/dL 1.8-2.4 Serum or plasma troponin i.cardiac measurement (mass/volume) - 04/04/18 14:43 Serum or plasma troponin i.cardiac measurement (mass/volume) 0.71 ng /mL <0.30 Myoglobin, serum - 04/04/18 14:43 Myoglobin, serum 1297.2 ng/mL 10.0-92.0 Encounters ACCT No. Visit Date/Time Discharge Status Pt. Type Provider Facility Loc./Unit Complaint [id number] 04/04/2018 14:13:00 04/04/2018 16:52:00 DIS Outpatient RACHEL MCKENZIE MD [facility] ER BP HIGH [id number] 01/31/2017 08:08:00 01/31/2017 11:10:00 DIS Emergency BOBBY RAMIREZ DO [facility] ER ELEVATED BLOOD PRESSURE [id number] 10/25/2016 13:17:00 10/25/2016 15:45:00 DIS Emergency PAKO ESCAMILLA [facility] ER ELEVATED BP [id number] 03/23/2015 12:40:00 03/23/2015 23:59:59 CLS Outpatient ELIGIO FLORES APRN [facility] RAD SOLITARY PULMONARY NODULE [id number] 03/10/2015 16:35:00 03/11/2015 12:40:00 DIS Inpatient PETER REGAN MD [facility] CSD CHEST PAIN;UNCONTROLLED HTN [id number] 05/01/2014 11:05:00 05/01/2014 13:51:00 DIS Emergency BYRON GAONA DO [facility] ER HIGH BP [id number] 11/14/2013 14:42:00 11/14/2013 23:59:59 CLS Outpatient RON LOPEZ [facility] RAD NODULE [id number] 02/21/2017 08:07:00 Document Registration [id number] 04/04/2018 13:00:00 04/04/2018 23:59:59 CLS Outpatient BYRON HERNÁNDEZ APRN [facility]
[2018-06-12] MEDS ORDERED: ORPH100T PO (21:58)
[2018-06-12] MEDS ORDERED: PRD20T PO (21:58)
--- NOTE | 2018-06-12 21:59 | ED Neck-Back Pain/Injury ---
General Chief Complaint: Head/Cervical Problems Stated Complaint: NECK PAIN Nursing Triage Note: PT AMB TO ROOM #3 W/O DIFFIUCLTY. A&OX4. CO NECK PAIN THAT RADIATES TO HEAD. PT REPORTS FOR >3MO HE HAS SAME NECK PAIN THAT BEGINS AT THE BASE OF HIS NECK AND RADIATES TO HEAD. PT REPORTS HE BELIVES THE NECK PAIN IS RT HIS HTN, BUT "TODAY MY BP IS LOWER THAN NORMAL AND IT STILL HURTS." DENIES INJURY Nursing Sepsis Screen: No Definite Risk Source of Information: Patient Exam Limitations: No Limitations History of Present Illness Date Seen by Provider: Jun 12, 2018 Time Seen by Provider: 21:40 Initial Comments This 33-year-old gentleman presents to the emergency room with complaints of pain in the right neck and radiating into his shoulder and up toward his head. Pain is waxing and waning and has been present for a few months. He denies any injury. He cannot take NSAID medications as he has a renal failure and is on dialysis. His renal failure is from hypertension. Patient sees Dr. De Leon for his renal health but he does not have a primary care provider. Allergies and Home Medications Allergies Coded Allergies: No Known Drug Allergies (Unverified , 05/01/14) Home Medications Orphenadrine Citrate 100 Mg Tablet.er, 100 MG PO BID PRN for SPASMS Prescribed by: DENIS HARRIS on 06/12/182157 Prednisone 20 Mg Tab, 1 TAB PO DAILY Prescribed by: DENIS HARRIS on 06/12/182157 [Amlodipine Besylate] 10 MG TABLET, 10 MG PO DAILY Prescribed by: PETER REGAN on 03/11/15 1210 Patient Home Medication List Home Medication List Reviewed: Yes Review of Systems Constitutional: no symptoms reported EENTM: no symptoms reported Respiratory: no symptoms reported Cardiovascular: no symptoms reported Gastrointestinal: no symptoms reported Genitourinary: see HPI Musculoskeletal: see HPI Skin: no symptoms reported Psychiatric/Neurological: No Symptoms Reported Past Rrvwlrr-Tipfrd-Udbgev Hx Past Med/Social Hx: Reviewed and Corrections made Patient Social History Drug of Choice: MARIJUANA Type Used: Cigarettes Recent Foreign Travel: No Contact w/Someone Who Travel: No Recent Infectious Disease Expo: No Recent Hopitalizations: No Immunizations Up To Date Tetanus Booster (TDap): More than 5yrs Past Medical History Surgeries: No Respiratory: No Cardiac: Yes Hypertension Neurological: No Reproductive Disorders: No Genitourinary: Yes Renal Failure, Dialysis Gastrointestinal: No Musculoskeletal: No Endocrine: No HEENT: No Cancer: No Psychosocial: No Integumentary: No Blood Disorders: No Adverse Reaction/Blood Tranf: No Family Medical History Cancer, Hypertension Physical Exam Vital Signs Vital Signs - First Documented 06/12/18 21:21 Temp 98.3 Pulse 83 Resp 18 B/P (MAP) 155/98 (117) Pulse Ox 100 O2 Delivery Room Air Capillary Refill : Less Than 3 Seconds Height, Weight, BMI Height: 6'2.00" Weight: 175lbs. 0.1oz. 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 Norm as Tested Skin: Normal Color, Warm/Dry Progress/Results/Core Measures Results/Orders My Orders Orders - DENIS MEEK MD Orphenadrine Injection (Norflex Injectio (06/12/18 22:00) Medications Given in ED Current Medications Medications Dose Ordered Sig/Rm Route Start Time Stop Time Status Last Admin Dose Admin Orphenadrine Citrate 30 mg ONCE ONCE IM 06/12/18 22:00 06/12/18 22:01 DC 06/12/18 22:06 30 MG Vital Signs/I&O 06/12/18 06/12/18 21:21 22:21 Temp 98.3 98.3 Pulse 83 83 Resp 18 18 B/P (MAP) 155/98 (117) 157/101 (117) Pulse Ox 100 100 O2 Delivery Room Air Blood Pressure Mean: 117 Progress Progress Note : Progress Note Patient was given an injection of Norflex. See discharge instructions. Departure Impression Primary Impression: Neck muscle strain Qualified Codes: S16.1XXA - Strain of muscle, fascia and tendon at neck level , initial encounter Additional Impression: Neck pain Disposition: 01 HOME, SELF-CARE Condition: Improved Departure-Patient Inst. Decision time for Depature: 21:56 Referrals: [facility] (PCP/Family) Primary Care Physician Patient Instructions: Cervical Muscle Strain Add. Discharge Instructions: You may take Tylenol (acetaminophen) up to 1000 mg every 6 hours as needed for pain. Gentle heat such as a heating pad on low and gentle stretching may also be helpful. If the injection of muscle relaxer was helpful tonight, you may use the oral muscle relaxer prescribed. Prednisone was also prescribed. Please check with Dr. De Leon's office before starting this medication. Do not start it if his office has any concern about taking prednisone. If these measures are not helpful. You may seek referral to physical therapy and/or imaging of your neck. Please establish with a primary care provider soon as possible. Return to care if symptoms worsen. All discharge instructions reviewed with patient and/or family. Voiced understanding. Scripts Prednisone (Prednisone) 20 Mg Tab 1 TAB PO DAILY, #5 TAB Prov: DENIS MEEK MD 06/12/18 Orphenadrine Citrate (Orphenadrine Citrate) 100 Mg Tablet.er 100 MG PO BID PRN for SPASMS, #20 TAB Prov: DENIS MEEK MD 06/12/18 DENIS MEEK MD Jun 12, 2018 21:59
[2018-06-12] MEDS ORDERED: ORPHENADRINE 60 MG/2 ML (NORFLEX) AMP IM ONE (22:00)
[2018-06-12 22:21] VITALS: BP 157/101
== END 2018-06-12 22:21 | disposition home or self-care (01) ==
LOC: EDUNIT# 19:56 → ER 19:57
DX: S16.1XXA Strain of muscle, fascia and tendon at neck level, initial encounter (principal); I12.0 Hypertensive chronic kidney disease with stage 5 chronic kidney disease or end stage renal disease; N18.6 End stage renal disease; F12.10 Cannabis abuse, uncomplicated; Z99.2 Dependence on renal dialysis; Z79.52 Long term (current) use of systemic steroids; X58.XXXA Exposure to other specified factors, initial encounter
CPT/HCPCS: 96372; 99284

== ENCOUNTER 2019-01-24 05:39 | Outpatient (CLI) | payer MEDICAID ==
[~2019-01-24] VITALS: Ht 188 cm; Wt 79.4 kg
[~2019-01-24 05:39] MED LIST changes: +ORPH100T PO
[2019-01-24] MEDS ORDERED: LOSA100T57 PO (09:31)
[2019-01-24] MEDS ORDERED: CRV25T PO (09:31)
[2019-01-24] MEDS ORDERED: SEVE800T7 PO (09:31)
[2019-01-24] MEDS ORDERED: NISO30TA PO (09:31)
[2019-01-24] MEDS ORDERED: HYDR100T27 PO (09:31)
== END 2019-01-24 09:35 | disposition home or self-care (01) ==
LOC: PREOP 05:39
PROVIDERS: ATTEND Surgery
DX: Z01.818 Encounter for other preprocedural examination (principal)

== ENCOUNTER 2019-01-31 09:59 | Day surgery (SDC) | payer MEDICARE, MEDICAID ==
[~2019-01-31] VITALS: Ht 188 cm; Wt 79.4 kg
[~2019-01-31 09:59] MED LIST changes: +CRV25T PO; +HYDR100T27 PO; +LOSA100T57 PO; +NISO30TA PO; +SEVE800T7 PO
[2019-01-31] MEDS ORDERED: LACTATED RINGERS 1,000 ML IV ONE (10:01)
[2019-01-31] MEDS ORDERED: LACTATED RINGERS 1,000 ML IV STA (10:32)
[2019-01-31 10:36] VITALS: BP 124/70
--- NOTE | 2019-01-31 10:48 | Progress Note-Pre Operative ---
Pre-Operative Progress Note H&P Reviewed The H&P was reviewed, patient examined and no changes noted. Time Seen by Provider: 10:48 Date H&P Reviewed: January 31, 2019 Time H&P Reviewed: 10:47 Pre-Operative Diagnosis: screening colonoscopy REANNA MENG DO January 31, 2019 10:48
[2019-01-31] MEDS ORDERED: MIDAZOLAM 2 MG/2 ML (VERSED) VIAL ONE (10:54)
[2019-01-31] MEDS ORDERED: PROPOFOL INJECTION 50 ML IV ONE (10:55)
--- OUTSIDE RECORDS SUMMARY | 2019-01-31 11:00 | XMS REPORT | Encounter Summary ---
Author Author [facility] Organization [facility] Address Unknown Phone Unavailable Care Team Providers Care Clay Caster Name Role Phone PCP Unavailable Encounter Details Date Type Department Care Team Description 11/13/2018 Documentation [facility] Destiny Franco, RN Liver Transplant Program [address] [place] [address], [address] [place] [address] Social History Tobacco Use Types Packs/Day Years Used Date Current Some Day Smoker Cigarettes Smokeless Tobacco: Never Used Comments: In process of quitting. Hx of 1-2 ppd. Alcohol Use Drinks/Week oz/Week Comments No Sex Assigned at Date Recorded Not on file as of this encounter Progress Notes * Destiny Franco RN - 11/13/2018 8:50 AM [employer] REPRESENTATIVE Chart Preparation for visit in this encounter Plan of Treatment Not on fileas of this encounter Visit Diagnoses Not on filein this encounter
--- OUTSIDE RECORDS SUMMARY | 2019-01-31 11:00 | XMS REPORT | Encounter Summary ---
Author Author [facility] Organization [facility] Address Unknown Phone Unavailable Care Team Providers Care Manager Reimbursement Name Role Phone PCP Unavailable Reason for Visit * Reason Comments Kidney Transplant Evaluation Encounter Details Date Type Department Care Team Description 11/13/2018 Evaluation [facility] Kidney and Bryn Dozier MD ESRD ( end stage renal Liver Transplant Program [address] disease) (HCC) (Primary [address]); [facility] [place] [address], [place] [address] Idiopathic hypertension; [address] [place] [address] [phone] C Lisa myers MD [address] [place] [address] [phone] Social History Tobacco Use Types Packs/Day Years Used Date Current Some Day Smoker Cigarettes Smokeless Tobacco: Never Used Comments: In process of quitting. Hx of 1-2 ppd. Alcohol Use Drinks/Week oz/Week Comments No Sex Assigned at Date Recorded Not on file as of this encounter Last Filed Vital Signs Vital Sign Reading Time Taken Blood Pressure 143/100 11/13/2018 1:45 PM IMPLEMENTATION CONSULTANT Pulse 67 11/13/2018 1:45 PM IMPLEMENTATION CONSULTANT Temperature 36.2 C (97.1 F) 11/13/2018 1:45 PM IMPLEMENTATION CONSULTANT Respiratory Rate 18 11/13/2018 1:45 PM IMPLEMENTATION CONSULTANT Oxygen Saturation 100% 11/13/2018 1:45 PM IMPLEMENTATION CONSULTANT Inhaled Oxygen - - Concentration Weight 78.9 kg (174 lb) 11/13/2018 1:45 PM IMPLEMENTATION CONSULTANT Height 188 cm (6' 2") 11/13/2018 1:45 PM IMPLEMENTATION CONSULTANT Body Mass Index 22.34 11/13/2018 1:45 PM IMPLEMENTATION CONSULTANT in this encounter Progress Notes * Bryn Dozier MD - 11/13/2018 2:00 PM IMPLEMENTATION CONSULTANT Formatting of this note may be different from the original. Name: Azar Franco Sr. Date of : 1985 Attending physician: Dr. Bryn Dozier MD Date of service: 11/13/2018 Pre-transplant kidney evaluation History of present illness: Patient is a 33 y.o. male who presents with ESRD for nearly 2 years. The patient is currently on hemodialysis. Patient is currently making urine. Patient has not undergone previous kidney transplant. Patient started hemodialysis in March 2018. Patient continues to smoke at this time but is committed to quitting. There is a pulmonary nodule noted on a CT scan from 2014. Cross-sectional imaging is available for review there are no calcifications and either side is appropriate for transplant. Past Medical History: Past Medical History: Diagnosis Date ESRD on dialysis (HCC) Hypertension Surgical History: Past Surgical History: Procedure Laterality Date AV FISTULA PLACEMENT Review of Systems: Review of Systems Please see nursing documentation for detailed review of systems Social History: reports that he has been smoking Cigarettes. He has never used smokeless tobacco. He reports that he uses drugs, including Marijuana. He reports that he does not drink alcohol. Family History: Family History Problem Relation Age of Onset Thyroid cancer Mother Colon cancer Father Allergies: Allergies no known allergies Medications: Current Outpatient Prescriptions Medication Sig Dispense Refill carvedilol (COREG) 25 MG tablet Take 25 mg by mouth. hydrALAZINE (APRESOLINE) 50 MG tablet Take 50 mg by mouth 3 (three) times a day. losartan (COZAAR) 100 MG tablet Take 100 mg by mouth daily. NIFEdipine (ADALAT CC) 60 MG 24 hr tablet Take 60 mg by mouth daily. No current facility-administered medications for this visit. Vitals: BP (!) 143/100 (BP Location: Left arm, Patient Position: Sitting, Cuff size: Large) | Pulse 67 | Temp 36.2 C (97.1 F) (Oral) | Resp 18 | Ht 1.88 m (6 ' 2") | Wt 78.9 kg (174 lb) | SpO2 100% | BMI 22.34 kg/m Physical Exam: Physical Exam Constitutional: He is oriented to person, place, and time. He appears well- developed and well-nourished. HENT: Head: Normocephalic and atraumatic. Eyes: Pupils are equal, round, and reactive to light. Conjunctivae are normal. Neck: Normal range of motion. Neck supple. Cardiovascular: Normal rate and regular rhythm. Pulses: Femoral pulses are 2+ on the right side, and 2+ on the left side. Pulmonary/Chest: Effort normal and breath sounds normal. Abdominal: Soft. Bowel sounds are normal. Musculoskeletal: Normal range of motion. He exhibits no edema. Neurological: He is alert and oriented to person, place, and time. Skin: Skin is warm and dry. Psychiatric: He has a normal mood and affect. His behavior is normal. Nursing note and vitals reviewed. Labs: Lab Results Component Value Date WBC 4.82 09/20/2018 HGB 12.5 (L) 09/20/2018 HCT 36 (L) 09/20/2018 MCV 94 09/20/2018 PLT 318 09/20/2018 Lab Results Component Value Date CREAT 11.5 (H) 09/20/2018 BUN 41 (H) 09/20/2018 NA 137 09/20/2018 K 4.0 09/20/2018 CL 94 (L) 09/20/2018 CO2 27 09/20/2018 Assessment and plan: Azar was seen today for kidney transplant evaluation. Diagnoses and all orders for this visit: ESRD (end stage renal disease) (HCC) Idiopathic hypertension Tobacco abuse disorder 33-year-old male with end-stage kidney disease. There are no surgical contraindications to kidney transplantation apparent at this time. The patient should continue with the multidisciplinary evaluation workup and then once complete he should become presented to the committee for consideration. Over 60 minutes spent with the patient with over 50% of the time dedicated to counseling and coordination of care. Risk and benefits of surgery were discussed. Specific risks include bleeding, infection, risk of primary non function, and the need for chronic immuno suppression and its associated complications. Dr. Bryn Dozier MD * Zach, Lisa Infante MD - 11/13/2018 2:00 PM IMPLEMENTATION CONSULTANT Formatting of this note may be different from the original. PRE-TRANSPLANT EVALUATION NOTE: Date of Encounter: 11/12/2018 Azar Franco is a 33 year-old AA male with PMH/PSH significant for: 1) ESRD: on HD since 03/2018 2) HTN: diagnosed at age 20 3) h/o tobacco/THC use 4) s/p RUE AVF placement He is here for his pre-transplant evaluation. He identifies Dr. Lisandra De Leon as his pulmonary specialist. He goes to [facility] dialysis unit on //. EAch treatment is 4 hours long and he has a RUE AVF for access. His EDW is 78 kg. He still urinates about 150 ml daily. Past Medical History: Diagnosis Date ESRD on dialysis (HCC) Hypertension Past Surgical History: Procedure Laterality Date AV FISTULA PLACEMENT Allergies no known allergies Current Outpatient Prescriptions: carvedilol (COREG) 25 MG tablet, Take 25 mg by mouth., Disp: , Rfl: hydrALAZINE (APRESOLINE) 50 MG tablet, Take 50 mg by mouth 3 (three) times a day., Disp: , Rfl: losartan (COZAAR) 100 MG tablet, Take 100 mg by mouth daily., Disp: , Rfl: NIFEdipine (ADALAT CC) 60 MG 24 hr tablet, Take 60 mg by mouth daily., Disp : , Rfl: Social History Social History Marital status: Single Spouse name: N/A Number of children: N/A Years of education: N/A Occupational History Not on file. Social History Main Topics Smoking status: Current Some Day Smoker Types: Cigarettes Smokeless tobacco: Never Used Comment: In process of quitting. Hx of 1-2 ppd. Alcohol use No Drug use: Yes Types: Marijuana Comment: monthly Sexual activity: Not on file Other Topics Concern Not on file Social History Narrative No narrative on file Lives with 3 children (ages 15,13,11). He is disabled. 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 Family History Problem Relation Age of Onset Thyroid cancer Mother Colon cancer Father Mother: 59 year-old; suffers from thyroid CA Fatjer: at age 42 of colon CA Review of Systems Constitutional: Positive for malaise/fatigue (associated with dialysis). HENT: Negative. Eyes: Negative. Respiratory: Negative. Cardiovascular: Negative. Gastrointestinal: Negative. Genitourinary: Negative. Musculoskeletal: Negative. Skin: Negative. Neurological: Negative. Endo/Heme/Allergies: Negative. Psychiatric/Behavioral: Negative. PHYSICAL EXAMINATION: Vitals: 11/13/18 1345 BP: (!) 143/100 Pulse: 67 Resp: 18 Temp: 36.2 C (97.1 F) SpO2: 100% Weight: 78.9 kg (174 lb) Height: 1.88 m (6' 2") Body mass index is 22.34 kg/m. General appearance: in no acute distress HEENT: NC/AT, EOMI, PERRL Neck: no LN/TM; no JVD Lungs: CTA, bilaterally; no crackles or wheezes Heart: RRR; S1, S2; no rub Abdomen: soft, non-tender, non-distended; bowel sounds present; no rebound or guarding Ext: no edema, cyanosis, or clubbing; RUE AVF in situ (+) bruit Neuro: alert and oriented x 3; CN 3-12 intact; motor strength 5/5 bilaterally and throughout LABORATORY FINDINGS: Ref. Range 09/20/2018 14:10 SODIUM Latest Ref Range: 133 - 147 MEQ/L 137 POTASSIUM Latest Ref Range: 3.5 - 5.3 MEQ/L 4.0 CHLORIDE Latest Ref Range: 96 - 112 MEQ/L 94 (L) CARBON DIOXIDE Latest Ref Range: 20 - 32 MEQ/L 27 Anion Gap Latest Ref Range: 5 - 17 17 Glucose Latest Ref Range: 70 - 100 mg/dL 91 Blood Urea Nitrogen Latest Ref Range: 7 - 26 mg/dL 41 (H) Creatinine Latest Ref Range: 0.6 - 1.3 mg/dL 11.5 (H) eGFR Male AA Latest Ref Range: 60 - 200 6 (L) eGFR Male Non-AA Latest Ref Range: 60 - 200 5 (L) CALCIUM Latest Ref Range: 8.4 - 10.5 mg/dL 9.6 Phosphorus Latest Ref Range: 2.5 - 4.5 mg/dL 6.7 (H) CHOLESTEROL Latest Ref Range: 100 - 200 mg/dL 159 Cholesterol/HDL Ratio Latest Ref Range: 0.0 - 4.5 3.6 HDL CHOLESTEROL Latest Ref Range: 40 - 110 mg/dL 44 LDL Cholesterol Latest Ref Range: 0 - 99 mg/dL 88 Non-HDL Cholesterol Latest Ref Range: 0 - 130 mg/dL 115 TRIGLYCERIDES Latest Ref Range: 0 - 150 mg/dL 133 Alanine Aminotransferase Latest Ref Range: 0 - 49 IU/L 12 Albumin Latest Ref Range: 3.5 - 5.0 g/dL 4.8 Alkaline Phosphatase Latest Ref Range: 42 - 140 IU/L 45 Aspartate Aminotransferase Latest Ref Range: 15 - 46 IU/L 12 (L) Bilirubin Direct Latest Ref Range: 0.0 - 0.4 mg/dL 0.0 Protein Total Serum Latest Ref Range: 6.0 - 8.2 g/dL 7.5 Total Bilirubin Latest Ref Range: 0.2 - 1.3 mg/dL 0.5 Interpretation Unknown Comment Protime Latest Ref Range: 11.4 - 15.0 sec 16.0 (H) INR Latest Ref Range: 0.8 - 1.2 1.3 (H) WBC Latest Ref Range: 4.00 - 11.00 TH/uL 4.82 RBC Latest Ref Range: 4.31 - 5.84 MIL/uL 3.82 (L) HEMOGLOBIN Latest Ref Range: 13.0 - 17.0 g/dL 12.5 (L) HEMATOCRIT Latest Ref Range: 40 - 50 % 36 (L) MCV Latest Ref Range: 80 - 99 fL 94 MCH Latest Ref Range: 27 - 34 pg 33 MCHC Latest Ref Range: 32 - 36 % 35 RDW Latest Ref Range: 9.0 - 14.5 % 15.4 (H) Platelet Count Latest Ref Range: 140 - 400 TH/uL 318 MPV Latest Ref Range: 9.4 - 12.3 fL 8.8 (L) N RBC % Latest Ref Range: 0 - 0 /100 0 % Neutrophils Latest Ref Range: 45 - 78 % 63 %Lymphocytes Latest Ref Range: 15 - 47 % 26 % MONOCYTES Latest Ref Range: 0 - 12 % 8 %Eosinophils Latest Ref Range: 0 - 7 % 2 %Basophils Latest Ref Range: 0 - 2 % 1 % Imm Grans Latest Ref Range: 0 - 1 % 0 # Granulocytes Latest Ref Range: 1.70 - 6.80 TH/uL 3.05 # Lymphocytes Latest Ref Range: 1.00 - 3.30 TH/uL 1.25 # Monocytes Latest Ref Range: 0.20 - 0.90 TH/uL 0.36 # Eosinophils Latest Ref Range: 0.00 - 0.40 TH/uL 0.11 # Basophils Latest Ref Range: 0.00 - 0.10 TH/uL 0.05 HEMOGLOBIN A1C Latest Ref Range: 4.0 - 5.6 % 4.2 Parathyroid Hormone Intact Latest Ref Range: 10 - 65 pg/mL 258 (H) T4 Free Latest Ref Range: 0.8 - 2.2 ng/dL 1.6 Thyroid Stimulating Hormone Latest Ref Range: 0.47 - 4.68 uIU/mL 1.53 ABORH Type Unknown B Positive Antibody Screen Latest Ref Range: Negative Negative Drug Screen Comment Blood Unknown Drugs of Abuse, B... Phencyclidine Blood Unknown Negative Opiates Blood Unknown Negative Ethanol Blood Unknown Negative Cocaine Blood Unknown Negative Amphetamines Blood Unknown Negative Tetrahydrocannabinol Blood Unknown Positive Cotinine Latest Units: ng/mL 83.3 Nicotine Latest Units: ng/mL 1.3 QFT Interpretation Latest Ref Range: Negative Negative RPR Latest Ref Range: Non-reactive Non-reactive EBV Ab VCA IgM Latest Ref Range: 0.0 - 35.9 U/mL <36.0 EBV Early Antigen Ab IgG Latest Ref Range: 0.0 - 8.9 U/mL <9.0 EBV Ab VCA IgG Latest Ref Range: 0.0 - 17.9 U/mL 385.0 (H) EBV Nuclear Antigen Ag IgG Latest Ref Range: 0.0 - 17.9 U/mL 69.0 (H) Cytomegalovirus IgG Antibody Interp Latest Ref Range: Negative Positive (A) Cytomegalovirus IgG Antibody Latest Ref Range: 0 - 3 UA/ml 21 (H) VZV IgG Latest Ref Range: Negative Positive (A) Hepatitis B Surface Ag Latest Ref Range: Non-reactive Non-reactive Hepatitis B Core Total Ab Latest Ref Range: Non-reactive Non-reactive Hepatitis B Surface Ab Latest Ref Range: Non-reactive Reactive (A) Hepatitis C Ab Latest Ref Range: Non-reactive Non-reactive HIV AG/JAGJIT Latest Ref Range: Non-reactive Non-reactive ECHO: (10/23/2018) LVEF 65%; moderate concentric LVH Aorto-iliac Duplex: (09/27/2018) the abdominal aorta and common iliac arteries are of normal caliber; no significant atherosclerotic changes are present; normal arterial waveforms are detected throughout. LE Doppler: (09/27/2018) normal bilateral lower extremeity arterial duplex ultrasound ASSESSMENT/RECOMMENDATIONS: Azar Franco is a 33 year-old AA male with ESRD of unknown etiology and HTN who has been on dialysis since 03/2018. 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 Also emphasized the need for lifelong immunosuppression and frequent laboratory testing and clinic follow-up. Pt able to verbalize his understanding 2) Cardiovascular: normal ECHO 3) Endocrine: no diabetes or thyroid dysfunction 4) Infectious: CMV igG+, EBV IgG+, HBV S Ab+ 5) Psychosocial: thought to be low risk from psychosocial standpoint; instructed patient to stop tobacco use 6) Age-appropriate CA screening: none indicated 7) Donor options: his siblings have offered to be evaluated 8) Disposition: appears to be a good renal transplant candidate; await his HLA type and antibodies. Frank Serrano M.D., FACP, [facility], [facility] Corrosion Technician, Renal Transplant Program * Destiny Franco RN - 11/13/2018 2:00 PM IMPLEMENTATION CONSULTANT Pre-charting in preparation of office visit on 11/13/2018. in this encounter Miscellaneous Notes * Addendum Note - Bryn Dozier MD - 11/13/2018 2:00 PM IMPLEMENTATION CONSULTANT Addended by: BRYN DOZIER on: 12/03/2018 11:05 AM Modules accepted: Level of Service in this encounter Plan of Treatment Not on fileas of this encounter Visit Diagnoses Diagnosis ESRD (end stage renal disease) (HCC) - Primary End stage renal disease Idiopathic hypertension Unspecified essential hypertension Tobacco abuse disorder
--- OUTSIDE RECORDS SUMMARY | 2019-01-31 11:00 | XMS REPORT | Clinical Summary ---
Author Author [facility] Organization [facility] Address Unknown Phone Unavailable Care Team Providers Care Cloth Framer Name Role Phone PCP Unavailable Allergies No Known Allergies Current Medications Prescription Sig. Disp. Refills Start End Date Status Date NIFEdipine (ADALAT CC) 60 Take 60 mg by mouth Active MG 24 hr tablet daily. carvedilol (COREG) 25 MG Take 25 mg by mouth. Active tablet losartan (COZAAR) 100 MG Take 100 mg by mouth Active tablet daily. hydrALAZINE (APRESOLINE) Take 50 mg by mouth 3 Active 50 MG tablet (three) times a day. Active Problems Problem Noted Date Essential hypertension 11/12/2018 ESRD on dialysis ([facility]) 11/12/2018 Encounters Date Type Specialty Care Team Description 11/13/2018 Evaluation Transplant Bryn Otero MD ESRD (end stage renal Lisa Serrano MD disease) ([facility]) (Primary Dx); Idiopathic hypertension; Tobacco abuse disorder 11/13/2018 Orders Only Transplant Destiny Franco, ADELA 11/13/2018 Documentation Transplant Destiny Franco RN from Last 3 Months Family History Medical History Relation Name Comments Colon cancer Father Thyroid cancer Mother Relation Name Status Comments Brother Alive Brother Alive Brother Alive Daughter Alive Father Mother Alive Paternal Grandfather Alive Sister Alive Son Alive Son Alive Social History Tobacco Use Types Packs/Day Years Used Date Current Some Day Smoker Cigarettes Smokeless Tobacco: Never Used Comments: In process of quitting. Hx of 1-2 ppd. Alcohol Use Drinks/Week oz/Week Comments No Sex Assigned at Date Recorded Not on file Last Filed Vital Signs Vital Sign Reading Time Taken Blood Pressure 143/100 11/13/2018 1:45 PM CORDUROY CUTTING SUPERVISOR Pulse 67 11/13/2018 1:45 PM CORDUROY CUTTING SUPERVISOR Temperature 36.2 C (97.1 F) 11/13/2018 1:45 PM CORDUROY CUTTING SUPERVISOR Respiratory Rate 18 11/13/2018 1:45 PM CORDUROY CUTTING SUPERVISOR Oxygen Saturation 100% 11/13/2018 1:45 PM CORDUROY CUTTING SUPERVISOR Inhaled Oxygen - - Concentration Weight 78.9 kg (174 lb) 11/13/2018 1:45 PM CORDUROY CUTTING SUPERVISOR Height 188 cm (6' 2") 11/13/2018 1:45 PM CORDUROY CUTTING SUPERVISOR Body Mass Index 22.34 11/13/2018 1:45 PM CORDUROY CUTTING SUPERVISOR Plan of Treatment Health Maintenance Due Date Last Done Comments Medicare Annual Wellness 1985 Td # 1985 Tobacco Cessation 1987 Counseling # Pneumococcal Immunization 2006 19-64 Low/Medium Risk# (1 of 1 - PPSV23) Influenza Vaccine (Season 07/19/2019 Ended) Results Not on filefrom Last 3 Months
--- OUTSIDE RECORDS SUMMARY | 2019-01-31 11:00 | XMS REPORT | Encounter Summary ---
Author Author [facility] Organization [facility] Address Unknown Phone Unavailable Care Team Providers Care Energy Infrastructure Engineer Name Role Phone PCP Unavailable Encounter Details Date Type Department Care Team Description 11/13/2018 Orders Only [facility] Kidney and Destiny Franco, RN Liver Transplant Program [address] [place] [address], [address] [place] [address] Social History Tobacco Use Types Packs/Day Years Used Date Current Some Day Smoker Cigarettes Smokeless Tobacco: Never Used Comments: In process of quitting. Hx of 1-2 ppd. Alcohol Use Drinks/Week oz/Week Comments No Sex Assigned at Date Recorded Not on file as of this encounter Plan of Treatment Not on fileas of this encounter Visit Diagnoses Not on filein this encounter
[2019-01-31] MEDS ORDERED: NS IV 500 ML 500 ML ONE (11:01)
--- OUTSIDE RECORDS SUMMARY | 2019-01-31 11:01 | XMS REPORT | Continuity of Care Document ---
Author Organization Unknown Address Unknown Allergies Active Description Code Type Severity Reaction Onset Reported/Identified Relationship to Patient Clinical Status Yes No Known Drug Allergies [id number] Drug Allergy Unknown N/A 01/24/2019 Medications There is no data. Problems Date Dx Coded Attending Type Code Diagnosis Diagnosed By 05/01/2014 BYRON GAONA DO Ot 305.1 TOBACCO USE DISORDER 05/01/2014 BYRON GAONA DO Ot 305.90 DRUG ABUSE NEC-UNSPEC 05/01/2014 BYRON GAONA DO Ot 401.9 HYPERTENSION NOS 05/01/2014 BYRON GAONA DO Ot 486 PNEUMONIA, ORGANISM NOS 05/01/2014 BYRON GAONA DO Ot 786.2 COUGH 03/10/2015 RON LOPEZ SALESPERSON BURIAL PLOTS Ot 785.6 03/10/2015 RON LOPEZ SALESPERSON BURIAL PLOTS Ot 793.11 03/10/2015 RON LOPEZ SALESPERSON BURIAL PLOTS Ot 785.6 03/10/2015 RON LOPEZ SALESPERSON BURIAL PLOTS Ot 793.11 03/11/2015 PETER REGAN MD Ot 305.1 TOBACCO USE DISORDER 03/11/2015 PETER REGAN MD Ot 305.20 CANNABIS ABUSE-UNSPEC 03/11/2015 PETER REGAN MD Ot 401.0 MALIGNANT HYPERTENSION 03/11/2015 PETER REGAN MD Ot 786.50 CHEST PAIN NOS 03/11/2015 PETER REGAN MD Ot 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 PULMONARY NODULE 03/11/2015 PETER REGAN MD Ot V15.81 HX OF PAST NONCOMPLIANCE 03/11/2015 PETER REGAN MD Ot 305.1 03/11/2015 PETER REGNA MD Ot 305.20 03/11/2015 PETER REGAN MD Ot 401.0 03/11/2015 PETER REGAN MD Ot 786.50 03/11/2015 PETER REGAN MD Ot 793.11 03/11/2015 PETER REGAN MD Ot V15.81 03/23/2015 RON LOPEZ SALESPERSON BURIAL PLOTS Ot 785.6 03/23/2015 RON LOPEZ SALESPERSON B[employer]IAL PLOTS Ot 793.11 10/25/2016 PAKO ESCAMILLA Ot I10 ESSENTIAL (PRIMARY) HYPERTENSION 10/25/2016 PAKO ESCAMILLA L Ot I12.9 HYPERTENSIVE CHRONIC KIDNEY DISEASE W ST 10/25/2016 PAKO ESCAMILLA Ot N18.9 CHRONIC KIDNEY DISEASE, UNSPECIFIED 10/25/2016 PAKO ESCAMILLA L Ot R91.8 OTHER NONSPECIFIC ABNORMAL FINDING OF CLARA 10/25/2016 RON LOPEZ SALESPERSON B[employer] PLOTS Ot 785.6 ENLARGEMENT LYMPH NODES 10/25/2016 RON LOPEZ SALESPERSON B[employer]IAL PLOTS Ot 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 PULMONARY NODULE 10/25/2016 ELIGIO FLORES FOOTWEAR FACTORY WORKER Ot 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 PULMONARY NODULE 10/25/2016 RON LOPEZ SALESPERSON BURIAL PLOTS Ot 785.6 ENLARGEMENT LYMPH NODES 10/25/2016 RON LOPEZ SALESPERSON BURIAL PLOTS Ot 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 PULMONARY NODULE 10/25/2016 ELIGIO FLORES FOOTWEAR FACTORY WORKER Ot 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 PULMONARY NODULE 10/26/2016 PAKO ESCAMILLA Ot I10 ESSENTIAL (PRIMARY) HYPERTENSION 10/26/2016 PAKO ESCAMILLA Ot I12.9 HYPERTENSIVE CHRONIC KIDNEY DISEASE W ST 10/26/2016 PAKO ESCAMILLA Ot N18.9 CHRONIC KIDNEY DISEASE, UNSPECIFIED 10/26/2016 PAKO ESCAMILLA L Ot R91.8 OTHER NONSPECIFIC ABNORMAL FINDING OF CLARA 11/02/2016 PAKO ESCAMILLA Ot I10 ESSENTIAL (PRIMARY) HYPERTENSION 11/02/2016 PAKO ESCAMILLA L Ot I12.9 HYPERTENSIVE CHRONIC KIDNEY DISEASE W ST 11/02/2016 PAKO ESCAMILLA L Ot N18.9 CHRONIC KIDNEY DISEASE, UNSPECIFIED 11/02/2016 PAKO ESCAMILLA L Ot R91.8 OTHER NONSPECIFIC ABNORMAL FINDING OF CLARA 01/31/2017 RON LOPEZ SALESPERSON B[employer]IAL PLOTS Ot 785.6 ENLARGEMENT LYMPH NODES 01/31/2017 RON LOPEZ SALESPERSON B[employer]IAL PLOTS Ot 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 PULMONARY NODULE 01/31/2017 ELIGIO FLORES FOOTWEAR FACTORY WORKER Ot 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 PULMONARY NODULE 01/31/2017 JAMES DO, BOBBY K Ot F12.90 CANNABIS USE, UNSPECIFIED, UNCOMPLICATED 01/31/2017 JAMES DO, BOBBY K Ot F17.210 NICOTINE DEPENDENCE, CIGARETTES, UNCOMPL 01/31/2017 JAMES DO, BOBBY K Ot I10 ESSENTIAL (PRIMARY) HYPERTENSION 01/31/2017 JAMES DO, BOBBY K Ot I16.0 HYPERTENSIVE URGENCY 01/31/2017 JAMES DO, BOBBY K Ot N28.9 DISORDER OF KIDNEY AND URETER, UNSPECIFI 01/31/2017 JAMES DO, BBOBY K Ot Z79.899 OTHER [facility] (CURRENT) DRUG THERAPY 02/01/2017 JAMES DO, BOBBY [...] JAMES DO, BOBBY K Ot Z79.899 OTHER PRESALES ENGINEER (CURRENT) DRUG THERAPY 02/02/2017 JAMES DO, BOBBY [...] JAMES DO, BOBBY K Ot Z79.899 OTHER [facility] (CURRENT) DRUG THERAPY 04/04/2018 MAGALY ORTIZ, RACHEL Hernandez Ot F12.10 CANNABIS ABUSE, UNCOMPLICATED 04/04/2018 MAGALY ORTIZ, RACHEL Hernandez Ot F17.210 NICOTINE DEPENDENCE, CIGARETTES, UNCOMPL 04/04/2018 MAGALY ORTIZ, RACHEL Hernandez Ot I10 ESSENTIAL (PRIMARY) HYPERTENSION 04/04/2018 MAGALY ORTIZ, RACHEL Hernandez Ot I16.1 HYPERTENSIVE EMERGENCY 04/04/2018 RACHEL MCKENZIE MD Ot I51.3 INTRACARDIAC THROMBOSIS, NOT ELSEWHERE C 04/04/2018 RACHEL MCKENZIE MD Ot N17.9 ACUTE KIDNEY FAILURE, UNSPECIFIED 04/04/2018 RACHEL MCKENZIE MD Ot R03.0 ELEVATED BLOOD-PRESSURE READING, W/O CLINT 04/06/2018 RACHEL MCKENZIE MD Ot F12.10 CANNABIS ABUSE, UNCOMPLICATED 04/06/2018 ARCHEL MCKENZIE MD Ot F17.210 NICOTINE DEPENDENCE, CIGARETTES, UNCOMPL 04/06/2018 RACHEL MCKENZIE MD Ot I10 ESSENTIAL (PRIMARY) HYPERTENSION 04/06/2018 RACHEL MCKENZIE MD Ot I16.1 HYPERTENSIVE EMERGENCY 04/06/2018 RACHEL MCKENZIE MD Ot I51.3 INTRACARDIAC THROMBOSIS, NOT ELSEWHERE C 04/06/2018 RACHEL MCKENZIE MD Ot N17.9 ACUTE KIDNEY FAILURE, UNSPECIFIED 04/06/2018 RACHEL MCKENZIE MD Ot R03.0 ELEVATED BLOOD-PRESSURE READING, W/O CLINT 06/12/2018 DENIS MEEK MD, Ot F12.10 CANNABIS ABUSE, UNCOMPLICATED 06/12/2018 DENIS MEEK MD Ot I12.0 HYP CHR KIDNEY DISEASE W STAGE 5 CHR KID 06/12/2018 DENIS MEEK MD Ot M54.2 CERVICALGIA 06/12/2018 DENIS MEEK MD Ot N18.6 END STAGE RENAL DISEASE 06/12/2018 DENIS MEEK MD Ot S16.1XXA STRAIN OF MUSCLE, FASCIA AND TENDON AT N 06/12/2018 DENIS MEEK MD Ot X58.XXXA EXPOSURE TO OTHER SPECIFIED FACTORS, INI 06/12/2018 DENIS MEEK MD Ot Z79.52 [facility] (CURRENT) USE OF SYSTEMIC STER 06/12/2018 DENIS MEEK MD Ot Z99.2 DEPENDENCE ON RENAL DIALYSIS 06/14/2018 DENIS MEEK MD Ot F12.10 CANNABIS ABUSE, UNCOMPLICATED 06/14/2018 DENSI MEEK MD Ot I12.0 HYP CHR KIDNEY DISEASE W STAGE 5 CHR KID 06/14/2018 DENIS MEEK MD, Ot M54.2 CERVICALGIA 06/14/2018 DENIS MEEK MD, Ot N18.6 END STAGE RENAL DISEASE 06/14/2018 DENIS MEEK MD, Ot S16.1XXA STRAIN OF MUSCLE, FASCIA AND TENDON AT N 06/14/2018 DENIS MEEK MD, Ot X58.XXXA EXPOSURE TO OTHER SPECIFIED FACTORS, INI 06/14/2018 DENIS MEEK MD, Ot Z79.52 [facility] (CURRENT) USE OF SYSTEMIC STER 06/14/2018 DENIS MEEK MD, Ot Z99.2 DEPENDENCE ON RENAL DIALYSIS 01/24/2019 REANNA MENG DO, Ot Z01.818 ENCOUNTER FOR OTHER PREPROCEDURAL EXAMIN Procedures There is no data. Results Test [...] Status Pt. Type Provider Facility Loc./Unit Complaint [id number] 01/24/2019 05:39:00 01/24/2019 09:35:00 DIS Outpatient REANNA MENG DO [facility] PREOP COLONOSCOPY [id number] 06/12/2018 19:57:00 06/12/2018 22:21:00 DIS Emergency DENIS MEEK MD [facility] ER NECK PAIN [id number] 04/04/2018 14:13:00 04/04/2018 16:52:00 DIS Emergency RACHEL MCKENZIE MD [facility] ER BP HIGH [id number] 01/31/2017 08:08:00 01/31/2017 11:10:00 DIS Emergency BOBBY RAMIREZ DO [facility] ER ELEVATED BLOOD PRESSURE [id number] 10/25/2016 13:17:00 10/25/2016 15:45:00 DIS Emergency PAKO ESCAMILLA [facility] ER ELEVATED BP [id number] 03/23/2015 12:40:00 03/23/2015 23:59:59 CLS Outpatient ELIGIO FLORES APRN [facility] RAD SOLITARY PULMONARY NODULE [id number] 03/10/2015 16:35:00 03/11/2015 12:40:00 DIS Inpatient PETER REGAN MD [facility] CSD CHEST PAIN;UNCONTROLLED HTN [id number] 05/01/2014 11:05:00 05/01/2014 13:51:00 DIS Emergency BYRON GAONA DO [facility] ER HIGH BP [id number] 11/14/2013 14:42:00 11/14/2013 23:59:59 CLS Outpatient RON LOPEZ [facility] RAD NODULE [id number] 01/31/2019 13:00:00 PEN Preadmit REANNA MENG DO [facility] ENDO KIDNEY FAILURE [id number] 02/21/2017 08:07:00 Document Registration [id number] 04/04/2018 13:00:00 04/04/2018 23:59:59 CLS Outpatient BYRON HERNÁNDEZ APRN [facility]
[2019-01-31 11:30] VITALS: BP 113/65
--- NOTE | 2019-01-31 11:38 | Progress Note-Post Operative ---
Post-Operative Progess Note Surgeon (s)/Marinator (s) Surgeon REANNA MENG DO Marinator: none Pre-Operative Diagnosis screening colonoscopy Post-Operative Diagnosis Internal hemorrhoids Procedure & Operative Findings Date of Procedure 01/31/19 Procedure Performed/Findings colonoscopy Anesthesia Type IV sedation by GOLD LEAF PRINTER Estimated Blood Loss Estimated blood loss (mL): none Specimens/Packing Specimens Removed none REANNA MENG DO January 31, 2019 11:37
--- NOTE | 2019-01-31 11:39 | Endoscopy Discharge Instruct ---
Endo Procedure/Findings Findings 1.: Internal Hemorrhoids Discharge Instructions - Activity: You might feel a little sleepy until tomorrow. This is due to the medicine you received to relax you. Until tomorrow, you should: NOT drive a car, operate machinery or power tools. NOT drink any alcoholic beverages. NOT make any important decisions or sign importortant papers. Do not return to work until tomorrow, unless otherwise instructed. Resume previous activities tomorrow. Diet: Start by taking liquids. If you tolerate liquids, advance to solid food. make an appointment for one week Notify Physician - If you experience excessive bleeding, unusual abdominal pain, fever, or chest pain, contact your doctor immediately. Follow-Up: - I have received and understand the above instructions and will call my doctor if I have any further questions. Patient Signature Date Nurse Signature Other (Relationship) REANNA MENG DO January 31, 2019 11:38
[2019-01-31] MEDS ORDERED: NS IV 500 ML 500 ML IV SCH (11:45)
[2019-01-31 11:50] VITALS: BP 121/81
[2019-01-31 12:00] VITALS: BP 121/81
--- NOTE | 2019-01-31 15:19 | OPERATIVE REPORT ---
DATE OF SERVICE: PREOPERATIVE DIAGNOSIS: Screening colonoscopy. POSTOPERATIVE DIAGNOSES: Screening colonoscopy. He did have some internal hemorrhoids. PROCEDURE: Colonoscopy. SURGEON: Garcia Logan DO. DOCUMENT MANAGER: None. ANESTHESIA: IV sedation by APPRAISAL MANAGER. SPECIMENS: None. BLOOD LOSS: None. FLUIDS: Per anesthesia. POSTOPERATIVE CONDITION: Stable. INDICATION FOR PROCEDURE: The patient is a 33-year-old male who unfortunately has renal failure who is going to get a kidney transplant and needs a screening colonoscopy to make sure he does not have any polyps immunosuppressants which will increase rate of cancer growth. FINDINGS: The patient had a normal colon and normal terminal ileum. He did have some internal hemorrhoids. PROCEDURE NOTE: After informed consent was obtained, the patient was brought to the endoscopy suite, placed in bed in the left lateral decubitus position. He was administered IV sedation by the APPRAISAL MANAGER who then monitored his vitals the entire time, heart rate, blood pressure and pulse ox and the scope was then inserted, pushed all the way to about 130 cm, able to get to the cecum, took a picture of appendiceal orifice, then able to get into the terminal ileum, looked normal. Then, slowly withdrew the scope insufflating to look circumferentially at the hercules looking at the cecum up the ascending colon to hepatic flexure, then down the transverse colon to the splenic flexure, into the descending colon and then down into the sigmoid and finally into the rectum, retroflexed in rectal vault, saw some minimal internal hemorrhoids, took a picture of this, then removed the scope. The patient tolerated the procedure and recovered in endoscopy suite. Job ID: [id number] DocumentID: [id number] Dictated Date: 01/31/2019 11:36:31 Data Warehouse Architect Date: 01/31/2019 15:18:50 Dictated By: GARCIA LOGAN DO
== END 2019-01-31 12:00 | disposition home or self-care (01) ==
LOC: ENDO 09:59
PROVIDERS: ATTEND Surgery
DX: Z12.11 Encounter for screening for malignant neoplasm of colon (principal); K64.8 Other hemorrhoids; Z80.0 Family history of malignant neoplasm of digestive organs; I12.0 Hypertensive chronic kidney disease with stage 5 chronic kidney disease or end stage renal disease; N18.6 End stage renal disease; D64.9 Anemia, unspecified; I08.1 Rheumatic disorders of both mitral and tricuspid valves; F17.210 Nicotine dependence, cigarettes, uncomplicated; Z99.2 Dependence on renal dialysis; Z79.899 Other long term (current) drug therapy

== ENCOUNTER → 2019-07-09 | Outpatient (CLI) | payer MEDICARE, MEDICAID ==
--- NOTE | 2019-07-09 13:25 | Diagnostic Imaging Report ---
INDICATION: Left lower quadrant abdominal pain. COMPARISON: None. FINDINGS: Two supine radiographic views of the abdomen were obtained. Small bowel loops are nondistended. There is no large collection of free intraperitoneal air. No unexpected extraosseous calcifications or radiopaque foreign bodies are seen. Osseous structures show no acute abnormalities. IMPRESSION: 1. Nonobstructed small bowel gas pattern. Dictated by: Dictated on workstation # [id number]
== END ==
LOC: RAD 10:36
PROVIDERS: ATTEND Nurse Practitioner Family
DX: R10.32 Left lower quadrant pain (principal)
CPT/HCPCS: 74018

== ENCOUNTER → 2020-10-21 | Outpatient (CLI) | payer MEDICARE, MEDICAID ==
[~2020-10-21] MED LIST changes: +LISI1TAB46; -LISI1TAB8
== END ==
LOC: LABNPT 06:26
PROVIDERS: ATTEND Internal Medicine Nephrology
DX: Z20.822 Contact with and (suspected) exposure to COVID-19 (principal)
CPT/HCPCS: 87635

== ENCOUNTER 2020-12-27 19:49 | Emergency (ER) | payer MEDICARE, MEDICAID ==
[~2020-12-27] VITALS: Ht 73.2 cm; Wt 73.0 kg
[2020-12-27] MEDS ORDERED: RX-HYDROCODONE/APAP 5/325 MG #4 TAB PK PO PRN (20:00)
--- NOTE | 2020-12-27 20:02 | ED Lower Extremity ---
General Chief Complaint: Lower Extremity Stated Complaint: RIGHT ANKLE INJ Source: patient Exam Limitations: no limitations History of Present Illness Date Seen by Provider: Dec 27, 2020 Time Seen by Provider: 20:01 Initial Comments to ER with reports of twisting the right ankle this morning at his son's baseball game. Has had progressive pain throughout the course of the day today. He did not fall. He is unable to bear weight on it. He has end-stage renal disease on hemodialysis Monday with a fistula in the right arm. Onset: this morning Severity: moderate Pain/Injury Location: right ankle Method of Injury: twisted Modifying Factors: Worse With Movement Allergies and Home Medications Allergies Coded Allergies: No Known Drug Allergies (Unverified , 01/24/19) Home Medications Carvedilol 25 Mg Tab, 25 MG PO BID, (Reported) Hydralazine HCl 100 Mg Tablet, 100 MG PO TID, (Reported) Losartan Potassium 100 Mg Tablet, 100 MG PO DAILY, (Reported) Nisoldipine 30 Mg Tab.er.24h, 60 MG PO BID, (Reported) Sevelamer Carbonate 800 Mg Tablet, 1,600 MG PO AC, (Reported) Patient Home Medication List Home Medication List Reviewed: Yes Review of Systems Constitutional: see HPI EENTM: see HPI Respiratory: no symptoms reported Cardiovascular: no symptoms reported Genitourinary: no symptoms reported Musculoskeletal: see HPI Skin: no symptoms reported Psychiatric/Neurological: No Symptoms Reported Past Fvjsftx-Ynxgmc-Lrwhvl Hx Patient Social History Drug of Choice: MARIJUANA Type Used: Cigarettes 2nd Hand Smoke Exposure: No Recent Hopitalizations: No Immunizations Up To Date Tetanus Booster (TDap): More than 5yrs Date of Influenza Vaccine: Jun 25, 2018 Seasonal Allergies Seasonal Allergies: No Past Medical History Surgeries: No (FISTULA, PORT PLACEMENT) Respiratory: No Cardiac: Yes Hypertension Neurological: No Reproductive Disorders: No Sexually Transmitted Disease: No HIV/AIDS: No Genitourinary: Yes Renal Failure, Dialysis Gastrointestinal: No Musculoskeletal: No Endocrine: No HEENT: No Loss of Vision: Denies Hearing Impairment: Denies Cancer: No Psychosocial: No Integumentary: No Blood Disorders: Yes (ANEMIA) Adverse Reaction/Blood Tranf: No (N/A) Family Medical History Cancer, Hypertension Physical Exam Vital Signs Vital Signs - First Documented 12/27/20 19:58 Temp 37.0 Pulse 93 Resp 20 B/P (MAP) 173/109 (130) Pulse Ox 99 O2 Delivery Room Air Capillary Refill : Height, Weight, BMI Height: 6'2.00" Weight: 175lbs. 0.1oz. 79.824584ci; 22.5 BMI Method:Stated General Appearance: WD/WN, no apparent distress HEENT: PERRL/EOMI, normal ENT inspection Neck: non-tender, full range of motion Respiratory: no respiratory distress, no accessory muscle use Hips: bilateral hip non-tender, bilateral hip normal inspection, bilateral hip normal range of motion Legs: bilateral leg non-tender, bilateral leg normal inspection, bilateral leg normal range of motion Knees: bilateral knee non-tender, bilateral knee normal inspection, bilateral knee normal range of motion Ankles: right ankle pain, right ankle soft tissue tenderness, right ankle other (Strong dorsalis pedis pulse. There is no swelling or erythema) Neurologic/Psychiatric: alert, normal mood/affect, oriented x 3 Skin: normal color, warm/dry (If she is not out of that if she is not doing that monitoring in 30 minutes and call you back) Progress/Results/Core Measures Results/Orders My Orders Orders - GUZMAN HUERTA APRN Ankle, Right, 3 Views (12/27/20 20:00) Rx-Hydrocodone/Apap 5-325 Mg (Rx-Vicodin (12/27/20 20:00) Vital Signs/I&O 12/27/20 19:58 Temp 37.0 Pulse 93 Resp 20 B/P (MAP) 173/109 (130) Pulse Ox 99 O2 Delivery Room Air Departure Impression Primary Impression: Right ankle sprain Disposition: 01 HOME, SELF-CARE Condition: Stable Departure-Patient Inst. Decision time for Depature: 20:42 Referrals: [facility] (PCP/Family) Primary Care Physician Patient Instructions: Ankle Sprain ED GUZMAN HUERTA APRN Dec 27, 2020 20:02
--- NOTE | 2020-12-27 20:38 | Diagnostic Imaging Report ---
Indication: Right foot injury AP, oblique and lateral views of the right foot are obtained. FINDINGS: No acute fracture or dislocation is identified. No abnormal lytic or sclerotic focus is seen, and there is no radiopaque foreign body. IMPRESSION: No acute abnormality. Dictated by: Dictated on workstation # [id number]
[2020-12-27 21:25] VITALS: BP 180/106
== END 2020-12-27 21:29 | disposition home or self-care (01) ==
LOC: EDUNIT# 19:49 → ER 19:52
DX: S93.401A Sprain of unspecified ligament of right ankle, initial encounter (principal); I10 Essential (primary) hypertension; Z80.9 Family history of malignant neoplasm, unspecified; Z82.49 Family history of ischemic heart disease and other diseases of the circulatory system; X50.1XXA Overexertion from prolonged static or awkward postures, initial encounter; Y93.64 Activity, baseball
CPT/HCPCS: 73610

== ENCOUNTER 2021-11-14 21:12 | Emergency (ER) | payer MEDICARE, MEDICAID ==
[~2021-11-14] VITALS: Ht 208 cm; Wt 75.0 kg
--- NOTE | 2021-11-14 21:53 | ED GI ---
General Chief Complaint: Rect Problems Stated Complaint: BLOOD IN STOOL History of Present Illness Date Seen by Provider: Nov 14, 2021 Time Seen by Provider: 21:30 Initial Comments 36-year-old -[place] male presents for 2 episodes of passing small hard stools with blood noted in the toilet. He reports the first episode this morning and the second approximately 20 minutes prior to arrival. He has had no problems similar to this in the past. He had a colonoscopy in 2019 which was essentially normal, only internal hemorrhoids were noted. He reports a normal stool yesterday with no blood noted. He reports mild constipation, sitting on the toilet longer than usual today and straining. He denies nausea or vomiting. He has end-stage chronic kidney disease and is on kidney transplant list. Timing/Duration: 12 Hours Location: LLQ (intermittently) Associated Symptoms: Denies Symptoms; No Swelling/Mass in Abdomen (REBEL MATHIAS) Allergies and Home Medications Allergies Coded Allergies: No Known Drug Allergies (Unverified , 01/24/19) Patient Home Medication List Home Medication List Reviewed: Yes (REBEL MATHIAS) Carvedilol (Coreg) 25 Mg Tab, 25 MG PO BID, (Reported) Entered as Reported by: JAKOB RIVERA on 01/24/19930 Hydralazine HCl (Hydralazine HCl) 100 Mg Tablet, 100 MG PO TID, (Reported) Entered as Reported by: JAKOB RIVERA on 01/24/19930 Losartan Potassium (Losartan Potassium) 100 Mg Tablet, 100 MG PO DAILY, (Reported) Entered as Reported by: JAKOB RIVERA on 01/24/19930 Nisoldipine (Nisoldipine) 30 Mg Tab.er.24h, 60 MG PO BID, (Reported) Entered as Reported by: JAKOB RIVERA on 01/24/19930 Sevelamer Carbonate (Renvela) 800 Mg Tablet, 1,600 MG PO AC, (Reported) Entered as Reported by: JAKOB RIVERA on 01/24/19930 Review of Systems Review of Systems Constitutional: no symptoms reported, see HPI Gastrointestinal: See HPI; Denies Abdomen Distended, Denies Abdominal Pain; Blood Streaked Stools, Constipated; Denies Diarrhea, Denies Nausea, Denies Poor Appetite, Denies Poor Fluid Intake, Denies Rectal Bleeding, Denies Vomiting Genitourinary: No Symptoms Reported, See HPI (REBEL MATHIAS) All Other Systems Reviewed Negative Unless Noted: Yes (REBEL MATHIAS) Past Ovrwlqy-Fkmilu-Ksxxif Hx Patient Social History Tobacco Use?: No Substance use?: Yes Substance type: Marijuana Alcohol Use?: No (REBEL MATHIAS) Immunizations Up To Date Tetanus Booster (TDap): More than 5yrs (REBEL MATHIAS) Seasonal Allergies Seasonal Allergies: No (REBEL MATHIAS) Past Medical History Surgery/Hospitalization HX: renal failure, htn Surgeries: No (FISTULA, PORT PLACEMENT) Respiratory: No Cardiac: Yes Hypertension Neurological: No Reproductive Disorders: No Sexually Transmitted Disease: No HIV/AIDS: No Genitourinary: Yes Renal Failure, Dialysis Gastrointestinal: No Musculoskeletal: No Endocrine: No HEENT: No Loss of Vision: Denies Hearing Impairment: Denies Cancer: No Psychosocial: No Integumentary: No Blood Disorders: Yes (ANEMIA) Adverse Reaction/Blood Tranf: No (N/A) (REBEL MATHIAS) Family Medical History Reviewed Nursing Family Hx (REBEL MATHIAS) Cancer, Hypertension (REBEL MATHIAS) Physical Exam Vital Signs Vital Signs - First Documented 11/14/21 21:25 Temp 35.4 Pulse 89 Resp 16 B/P (MAP) 193/119 (143) Pulse Ox 98 O2 Delivery Room Air (AJMES,BOBBY K DO) Vital Signs Capillary Refill : (REBEL MATHIAS) Height/Weight/BMI Height: 6'2.00" Weight: 175lbs. 0.1oz. 79.555546un; 136.00 BMI Method:Stated General Appearance: WD/WN, no apparent distress Respiratory: chest non-tender, lungs clear, normal breath sounds Cardiovascular: normal peripheral pulses, regular rate, rhythm Gastrointestinal: normal bowel sounds, non tender, soft; No guarding, No rebound, No tenderness Rectal: normal exam, normal rectal tone, blood streaked stool, tenderness Extremities: normal range of motion, non-tender, normal inspection, no pedal edema, normal capillary refill (REBEL MATHIAS) Progress/Results/Core Measures Results/Orders Lab Results Laboratory Tests Test 11/14/21 21:54 Range/Units White Blood Count 6.3 4.3-11.0 10^3/uL Red Blood Count 3.27 L 4.30-5.52 10^6/uL Hemoglobin 10.4 L 13.3-17.7 g/dL Hematocrit 30 L 40-54 % Mean Corpuscular Volume 93 80-99 fL Mean Corpuscular Hemoglobin 32 25-34 pg Mean Corpuscular Hemoglobin Concent 34 32-36 g/dL Red Cell Distribution Width 12.1 10.0-14.5 % Platelet Count 296 130-400 10^3/uL Mean Platelet Volume 8.4 L 9.0-12.2 fL Immature Granulocyte % (Auto) 0 % Neutrophils (%) (Auto) 59 42-75 % Lymphocytes (%) (Auto) 28 12-44 % Monocytes (%) (Auto) 8 0-12 % Eosinophils (%) (Auto) 4 0-10 % Basophils (%) (Auto) 1 0-10 % Neutrophils # (Auto) 3.7 1.8-7.8 10^3/uL Lymphocytes # (Auto) 1.8 1.0-4.0 10^3/uL Monocytes # (Auto) 0.5 0.0-1.0 10^3/uL Eosinophils # (Auto) 0.2 0.0-0.3 10^3/uL Basophils # (Auto) 0.1 0.0-0.1 10^3/uL Immature Granulocyte # (Auto) 0.0 0.0-0.1 10^3/uL Sodium Level 139 135-145 MMOL/L Potassium Level 3.9 3.6-5.0 MMOL/L Chloride Level 100 98-107 MMOL/L Carbon Dioxide Level 22 21-32 MMOL/L Anion Gap 17 H 5-14 MMOL/L Blood Urea Nitrogen 67 H 7-18 MG/DL Creatinine 13.57 H 0.60-1.30 MG/DL Estimat Glomerular Filtration Rate 4 BUN/Creatinine Ratio 5 Glucose Level 87 70-105 MG/DL Calcium Level 8.6 8.5-10.1 MG/DL Corrected Calcium 8.7 8.5-10.1 MG/DL Total Bilirubin 0.4 0.1-1.0 MG/DL Aspartate Amino Transf (AST/SGOT) 9 5-34 U/L Alanine Aminotransferase (ALT/SGPT) 9 0-55 U/L Alkaline Phosphatase 52 40-136 U/L Total Protein 6.5 6.4-8.2 GM/DL Albumin 3.9 3.2-4.5 GM/DL (BOBBY RAMIREZ DO) Vital Signs/I&O 11/14/21 11/14/21 21:25 22:28 Temp 35.4 Pulse 89 89 Resp 16 18 B/P (MAP) 193/119 (143) 193/119 Pulse Ox 98 98 O2 Delivery Room Air Room Air (BOBBY RAMIREZ DO) Progress Progress Note : Time: 21:30 Progress Note Patient seen and evaluated, will obtain labs and continue to monitor. 2215 hemoglobin compatible with last CBC from March 2021. Patient has no further complaints at this time. Discharge instructions and return precautions reviewed. (REBEL MATHIAS) Departure Impression Primary Impression: Hemorrhoids Qualified Codes: K64.9 - Unspecified hemorrhoids Additional Impression: Bloody stools Disposition: HOME, SELF-CARE Condition: Improved Departure-Patient Inst. Decision time for Depature: 22:00 (REBEL MATHIAS) Referrals: [facility] Primary Care Physician REANNA MENG DO Patient Instructions: Hemorrhoids (DC), Bloody Stools, Adult ED Add. Discharge Instructions: Continue to use your fluid limits per kidney specialist. You can use Tucks pads or Preparation H for rectal pain or discomfort. Eat high-fiber foods. Take nuku-wpr-rpqknol stool softener. Avoid sitting on toilet for prolonged periods of time or straining. Follow-up with Dr. Meng if symptoms are not improving or worsen. Return to the emergency department for new, urgent healthcare needs. All discharge instructions reviewed with patient and/or family. Voiced understanding. ATTENDING PHYSICIAN NOTE: I WAS PHYSICALLY PRESENT ER PHYSICIAN, BUT I WAS NOT INVOLVED IN ANY DECISION MAKING OR ANY CARE OF THIS PATIENT. (BOBBY RAMIREZ DO) Copy Copies To 1: REANNA MENG AMY ARNP Nov 14, 2021 21:53 BOBBY RAMIREZ DO Nov 15, 2021 00:44
[2021-11-14 22:00] LABS: BASOPHILS # (AUTO) 0.1 10^3/uL (0.0-0.1); BASOPHILS % (AUTO) 1 % (0-10); EOSINOPHILS # (AUTO) 0.2 10^3/uL (0.0-0.3); EOSINOPHILS % (AUTO) 4 % (0-10); HEMATOCRIT 30 % (40-54); HEMOGLOBIN 10.4 g/dL (13.3-17.7); LYMPHOCYTES # (AUTO) 1.8 10^3/uL (1.0-4.0); LYMPHOCYTES % (AUTO) 28 % (12-44); MEAN CORPUSCULAR HEMOGLOBIN 32 pg (25-34); MEAN CORPUSCULAR HGB CONC 34 g/dL (32-36); MEAN CORPUSCULAR VOLUME 93 fL (80-99); MEAN PLATELET VOLUME 8.4 fL (9.0-12.2); MONOCYTES # (AUTO) 0.5 10^3/uL (0.0-1.0); MONOCYTES % (AUTO) 8 % (0-12); NEUTROPHILS # (AUTO) 3.7 10^3/uL (1.8-7.8); NEUTROPHILS % (AUTO) 59 % (42-75); PLATELET COUNT 296 10^3/uL (130-400); WHITE BLOOD COUNT 6.3 10^3/uL (4.3-11.0)
[2021-11-14 22:09] LABS: ALBUMIN 3.9 GM/DL (3.2-4.5); POTASSIUM 3.9 MMOL/L (3.6-5.0)
[2021-11-14 22:10] LABS: CALCIUM 8.6 MG/DL (8.5-10.1)
[2021-11-14 22:12] LABS: TOTAL PROTEIN 6.5 GM/DL (6.4-8.2)
[2021-11-14 22:14] LABS: BILIRUBIN,TOTAL 0.4 MG/DL (0.1-1.0)
[2021-11-14 22:15] LABS: CREATININE SERUM 13.57 MG/DL (0.60-1.30)
[2021-11-14 22:28] VITALS: BP 193/119
== END 2021-11-14 22:29 | disposition home or self-care (01) ==
LOC: EDUNIT# 21:12 → ER 21:16
DX: K64.9 Unspecified hemorrhoids (principal); K92.1 Melena
CPT/HCPCS: 36415; 80053; 85025; 99281

== ENCOUNTER 2021-12-01 05:17 | Emergency (ER) | payer MEDICARE, MEDICAID ==
[~2021-12-01] VITALS: Ht 208 cm; Wt 75.0 kg
[2021-12-01 05:24] VITALS: BP 159/101
[2021-12-01] MEDS ORDERED: ISOS60TA63 (05:28)
[2021-12-01] MEDS ORDERED: CLN.1T (05:28)
[2021-12-01] MEDS ORDERED: SPIR100T4 (05:28)
[2021-12-01] MEDS ORDERED: CALC667C10 (05:28)
[2021-12-01] MEDS ORDERED: RX-ONDANSETRON 4 MG ODT (ZOFRAN) PPK #4 PO STA (05:38)
[2021-12-01] MEDS ORDERED: CYCL10TA25 PO (05:41)
[2021-12-01] MEDS ORDERED: TRAM-42 PO (05:41)
[2021-12-01] MEDS ORDERED: ONDA4TAB11 PO (05:41)
--- NOTE | 2021-12-01 05:42 | ED Neck-Back Pain/Injury ---
General Chief Complaint: General Problems/Pain Stated Complaint: CHRONIC NECK PAIN Nursing Triage Note: c/o chronic intermittant neck pain for "years" worse x1 week. denies injury. Source of Information: Patient History of Present Illness Date Seen by Provider: Dec 01, 2021 Time Seen by Provider: 05:32 Initial Comments PT ARRIVES VIA POV FROM HOME--DROVE SELF HERE PT HAS HAD CHRONIC NECK PAIN FOR ABOUT 5 YEARS--NO INJURY PT STATES IT HAS BEEN WORSE FOR THE LAST WEEK-NO INJURY OR UNUSUAL ACTIVITY NO RADIATION OF PAIN NO PARESTHESIAS OR MOTOR DEFICITS NO HEADACHE NO FEVER OR RECENT ILLNESS NO RELIEF WITH TYLENOL WENT TO [facility]IROPRACTOR YESTERDAY, AND IT USUALLY HELPS, BUT PAIN IS WORSE SINCE LAST NIGHT--HAS NOT BEEN ABLE TO SLEEP PT IS ON DIALYSIS [id number], AND IS DUE TO HAVE DIALYSIS TODAY ( MONDAY ) PT HAS HYPERTENSIVE RENAL-VASCULAR DISEASE AND ONLY MEDICATION HE TAKES IS FOR BLOOD PRESSURE STATES HE CANNOT TAKE NSAIDS DUE TO KIDNEY FAILURE Other Comments PCP: DR. QUACH Allergies and Home Medications Allergies Coded Allergies: No Known Drug Allergies (Unverified , 01/24/19) Patient Home Medication List Home Medication List Reviewed: Yes Calcium Acetate (Calcium Acetate) 667 Mg Capsule, (Reported) Entered as Reported by: PRASHANT YEUNG on 12/01/21527 Last Action: New Order Carvedilol (Coreg) 25 Mg Tab, 25 MG PO BID, (Reported) Entered as Reported by: JAKOB RIVERA on 01/24/19930 Clonidine HCl (Clonidine HCl) 0.1 Mg Tablet, (Reported) Entered as Reported by: PRASHANT YEUNG on 12/01/21527 Last Action: New Order Cyclobenzaprine HCl (Cyclobenzaprine HCl) 10 Mg Tablet, 10 MG PO Q8H PRN for SPASMS Prescribed by: BOBBY RAMIREZ on 12/01/21540 Hydralazine HCl (Hydralazine HCl) 100 Mg Tablet, 100 MG PO TID, (Reported) Entered as Reported by: JAKOB RIVERA on 01/24/19930 Isosorbide Mononitrate (Isosorbide Mononitrate ER) 60 Mg Tab, (Reported) Entered as Reported by: PRASHANT YEUNG on 12/01/21527 Last Action: New Order Losartan Potassium (Losartan Potassium) 100 Mg Tablet, 100 MG PO DAILY, (Reported) Entered as Reported by: JAKOB RIVERA on 01/24/19930 Nisoldipine (Nisoldipine) 30 Mg Tab.er.24h, 60 MG PO BID, (Reported) Entered as Reported by: JAKOB RIVERA on 01/24/19930 Ondansetron (Ondansetron Odt) 4 Mg Tab.rapdis, 4 MG PO Q4H Prescribed by: BOBBY RAMIREZ on 12/01/21 05 Sevelamer Carbonate (Renvela) 800 Mg Tablet, 1,600 MG PO AC, (Reported) Entered as Reported by: JAKOB RIVERA on 01/24/19930 Spironolactone (Spironolactone) 100 Mg Tablet, (Reported) Entered as Reported by: PRASHANT YEUNG on 12/01/21527 Last Action: New Order Tramadol HCl (Ultram) 50 Mg Tablet, 50 MG PO Q4H Prescribed by: BOBBY RAMIREZ on 12/01/21 05 Review of Systems Constitutional: no symptoms reported EENTM: no symptoms reported Respiratory: no symptoms reported Cardiovascular: no symptoms reported Gastrointestinal: no symptoms reported Musculoskeletal: see HPI Skin: no symptoms reported Psychiatric/Neurological: No Symptoms Reported Past Cmiscdc-Zepxyq-Biwfil Hx Patient Social History Tobacco Use?: No Substance use?: Yes Substance type: Marijuana Alcohol Use?: No Pt feels they are or have been: No Immunizations Up To Date Tetanus Booster (TDap): More than 5yrs First/Initial COVID19 Vaccinat: 08/08 COVID19 Vaccine Inspector Canned Food Reconditioning: j&j Seasonal Allergies Seasonal Allergies: No Past Medical History Surgery/Hospitalization HX: renal failure, htn, right fistula, port, hd mwf Surgeries: Yes (AV-FISTULA RIGHT ARM; PORT PLACEMENT) Dialysis, Vascular Surgery Respiratory: No Cardiac: Yes Hypertension Neurological: No Reproductive Disorders: No Sexually Transmitted Disease: No HIV/AIDS: No Genitourinary: Yes (HYPERTENSIVE RENAL-VASCULAR DISEASE; ESRD ON DIALYSIS M-W-F) Renal Failure, Dialysis Gastrointestinal: No Musculoskeletal: Yes (CHRONIC NECK PAIN ) Endocrine: No HEENT: No Loss of Vision: Denies Hearing Impairment: Denies Cancer: No Psychosocial: No Integumentary: No Blood Disorders: Yes (ANEMIA) Adverse Reaction/Blood Tranf: No (N/A) Family Medical History Cancer, Hypertension Physical Exam Vital Signs Vital Signs - First Documented 12/01/21 05:24 Temp 35.8 Pulse 75 Resp 18 B/P (MAP) 159/101 (120) Pulse Ox 100 O2 Delivery Room Air Capillary Refill : Less Than 3 Seconds Height, Weight, BMI Height: 6'2.00" Weight: 175lbs. 0.1oz. [id number]; 17.00 BMI Method:Stated General Appearance: No Apparent Distress, WD/WN Neck: Other (BILATERAL PARA-CERVICAL MUSCLE SPASMS AND TENDERNESS. ) Cardiovascular: Regular Rate, Rhythm Respiratory: Normal Breath Sounds Extremity: No Pedal Edema Neurologic/Psychiatric: Alert, Oriented x3, No Motor/Sensory Deficits, Normal Mood/Affect, property loss insurance claim adjuster II-XII Norm as Tested Skin: Normal Color (PT IS BLACK) Progress/Results/Core Measures Results/Orders My Orders Orders - BOBBY RAMIREZ DO Rx-Tramadol Hcl (Rx-Ultram) (12/01/21 05:38) Rx-Ondansetron Po (Rx-Zofran Po) (12/01/21 05:38) Vital Signs/I&O 12/01/21 05:24 Temp 35.8 Pulse 75 Resp 18 B/P (MAP) 159/101 (120) Pulse Ox 100 O2 Delivery Room Air Blood Pressure Mean: 120 Departure Impression Primary Impression: EXACERBATION OF CHRONIC NECK PAIN Disposition: 01 HOME, SELF-CARE Condition: Stable Departure-Patient Inst. Decision time for Depature: 05:40 Referrals: PAUL QUACH MD (PCP/Family) Primary Care Physician Patient Instructions: Chronic Neck Pain (DC) Add. Discharge Instructions: MOIST HEAT TO AREA AT 20 MINUTE INTERVALS FOLLOW UP WITH DR. QUACH IN 2-3 DAYS IF NO BETTER All discharge instructions reviewed with patient and/or family. Voiced understanding. Scripts Ondansetron (Ondansetron Odt) 4 Mg Tab.rapdis 4 MG PO Q4H for Nausea/Vomiting, #10 TAB Prov: BOBBY RAMIREZ DO 12/01/21 Tramadol HCl (Ultram) 50 Mg Tablet 50 MG PO Q4H for Pain, #20 TAB Prov: JAMESCLAYA K DO 12/01/21 Cyclobenzaprine HCl (Cyclobenzaprine HCl) 10 Mg Tablet 10 MG PO Q8H PRN for SPASMS, #15 TAB 0 Refills Prov: BOBBY RAMIREZ DO 12/01/21 BOBBY RAMIREZ DO Dec 01, 2021 05:42
== END 2021-12-01 05:44 | disposition home or self-care (01) ==
LOC: EDUNIT# 05:17 → ER 05:20
DX: G89.29 Other chronic pain (principal); M54.2 Cervicalgia; I10 Essential (primary) hypertension
CPT/HCPCS: 99281

== ENCOUNTER → 2022-01-10 | Outpatient (CLI) | payer MEDICARE, MEDICAID ==
[~2022-01-10] MED LIST changes: +CALC667C10; +CLN.1T; +CYCL10TA25 PO; +ISOS60TA63; +ONDA4TAB11 PO; +SPIR100T4; +TRAM-42 PO
--- NOTE | 2022-01-10 14:24 | Diagnostic Imaging Report ---
INDICATION: Neck pain. FINDINGS: Four views. Cervical spine shows good alignment. Body height and disc spaces are well maintained. Facets show good alignment. Odontoid is intact. The atlantoaxial joint is in good alignment. No hypertrophic changes. The prevertebral soft tissues are not widened. IMPRESSION: Normal cervical spine. Dictated by: Dictated on workstation # [id number]
== END ==
LOC: RAD 12:45
PROVIDERS: ATTEND Nurse Practitioner Family
DX: M54.2 Cervicalgia (principal)
CPT/HCPCS: 72040

== ENCOUNTER 2023-02-26 07:19 | Emergency (ER) | payer MEDICARE, MEDICAID ==
[~2023-02-26] VITALS: Ht 187 cm; Wt 97.0 kg
[~2023-02-26 07:19] MED LIST changes: -LOSA100T57 PO; +LOSA100T58 PO; -ORPH100T PO; +ORPH100T3 PO
[2023-02-26] MEDS ORDERED: TRIM/SULFAMETH 160/800 (SEPTRA DS) TAB PO ONE (08:15)
[2023-02-26] MEDS ORDERED: GABAPENTIN 100 MG (NEURONTIN) CAP PO ONE (08:15)
[2023-02-26] MEDS ORDERED: NIFEdipine ER 30 MG (PROCARDIA XL) TAB PO ONE (08:15)
[2023-02-26] MEDS ORDERED: NIFE90TA40 PO (08:25)
[2023-02-26] MEDS ORDERED: SULF-11 PO (08:25)
[2023-02-26] MEDS ORDERED: GABA-486 PO (08:25)
--- NOTE | 2023-02-26 08:25 | ED General ---
General Chief Complaint: General Problems/Pain Stated Complaint: NEEDS MED REFILL Nursing Triage Note: STATES HE WAS SUPPOSE TO RECIEVE HIS TRANSPLANT MEDS IN THE MAIL YESTERDAY AND DID NOT. WOULD LIKE FOR US TO REFILL THEM. LIST IS ON HIS PHONE. THEY ARE DUE AT 0900. KIDNEY TRANSPLANT APPX 1 YEAR AGO. Source of Information: Patient Exam Limitations: No Limitations History of Present Illness Date Seen by Provider: Feb 26, 2023 Time Seen by Provider: 07:55 Initial Comments This 37-year-old gentleman with history of renal transplant presents to the emergency room with need for medication refills. He uses a mail-in service through [facility] but did not receive his medications this weekend before he ran out. He still has supply of his antirejection medications but ran out of nifedipine ER 90 mg daily, gabapentin 100 mg twice daily, and sulfamethoxazole trimethoprim 80 mg daily. He was not able to take his doses this morning. He has no physical complaints at this time. Allergies and Home Medications Allergies Coded Allergies: No Known Drug Allergies (Unverified , 01/24/19) Patient Home Medication List Home Medication List Reviewed: Yes Calcium Acetate (Calcium Acetate) 667 Mg Capsule, (Reported) Entered as Reported by: PRASHANT YEUNG on 12/01/21527 Carvedilol (Coreg) 25 Mg Tab, 25 MG PO BID, (Reported) Entered as Reported by: JAKOB RIVERA on 01/24/19930 Clonidine HCl (Clonidine HCl) 0.1 Mg Tablet, (Reported) Entered as Reported by: PRASHANT YEUNG on 12/01/21527 Cyclobenzaprine HCl (Cyclobenzaprine HCl) 10 Mg Tablet, 10 MG PO Q8H PRN for SPASMS Prescribed by: BOBBY RAMIREZ on 12/01/21 0541 Gabapentin (Gabapentin) 100 Mg Capsule, 100 MG PO BID Prescribed by: DENIS HARRIS on 02/26/23 0825 Hydralazine HCl (Hydralazine HCl) 100 Mg Tablet, 100 MG PO TID, (Reported) Entered as Reported by: JAKOB RIVERA on 01/24/19 09 Isosorbide Mononitrate (Isosorbide Mononitrate ER) 60 Mg Tab, (Reported) Entered as Reported by: PRASHANT YEUNG on 12/01/21527 Losartan Potassium (Losartan Potassium) 100 Mg Tablet, 100 MG PO DAILY, (Reported) Entered as Reported by: JAKOB RIVERA on 01/24/19930 Nifedipine (Nifedipine ER) 90 Mg Tablet.er, 90 MG PO DAILY Prescribed by: DENIS HARRIS on 02/26/23 08 Nisoldipine (Nisoldipine) 30 Mg Tab.er.24h, 60 MG PO BID, (Reported) Entered as Reported by: JAKOB RIVERA on 01/24/19930 Ondansetron (Ondansetron Odt) 4 Mg Tab.rapdis, 4 MG PO Q4H Prescribed by: BOBBY RAMIREZ on 12/01/21 05 Sevelamer Carbonate (Renvela) 800 Mg Tablet, 1,600 MG PO AC, (Reported) Entered as Reported by: JAKOB RIVERA on 01/24/19930 Spironolactone (Spironolactone) 100 Mg Tablet, (Reported) Entered as Reported by: PRASHANT YEUNG on 12/01/21527 Sulfamethoxazole/Trimethoprim (Sulfamethoxazole-Tmp Ss Tablet) 400 Mg-80 Mg Tablet, 1 EACH PO DAILY Prescribed by: DENIS HARRIS on 02/26/23 08 Tramadol HCl (Ultram) 50 Mg Tablet, 50 MG PO Q4H Prescribed by: BOBBY RAMIREZ on 12/01/21 0542 Review of Systems Review of Systems Constitutional: no symptoms reported EENTM: no symptoms reported Respiratory: no symptoms reported Cardiovascular: no symptoms reported Gastrointestinal: no symptoms reported Genitourinary: see HPI Musculoskeletal: no symptoms reported Skin: no symptoms reported Psychiatric/Neurological: No Symptoms Reported Hematologic/Lymphatic: No Symptoms Reported Immunological/Allergic: see HPI Past Zogqhic-Rkehzb-Hfhfej Hx Patient Social History Tobacco Use?: No Substance use?: Yes Substance type: Marijuana Alcohol Use?: Yes Alcohol Frequency: Once in a while Immunizations Up To Date Tetanus Booster (TDap): More than 5yrs First/Initial COVID19 Vaccinat: 08/08 Seasonal Allergies Seasonal Allergies: No Past Medical History Surgery/Hospitalization HX: renal failure, htn, right fistula, port, hd mwf Surgeries: Yes (AV-FISTULA RIGHT ARM; PORT PLACEMENT) Dialysis, Kidney Transplant, Vascular Surgery (Dialysis fistula in right arm, port) Respiratory: No Cardiac: Yes Hypertension Neurological: Yes Neuropathy Reproductive Disorders: No Sexually Transmitted Disease: No HIV/AIDS: No Genitourinary: Yes (HYPERTENSIVE RENAL-VASCULAR DISEASE) Renal Failure, Dialysis (history of) Gastrointestinal: No Musculoskeletal: Yes (CHRONIC NECK PAIN ) Endocrine: No HEENT: No Loss of Vision: Denies Hearing Impairment: Denies Cancer: No Psychosocial: No Integumentary: No Blood Disorders: Yes (ANEMIA) Adverse Reaction/Blood Tranf: No (N/A) Family Medical History Cancer, Hypertension Physical Exam Vital Signs Vital Signs - First Documented 02/26/23 07:27 Temp 34.7 Pulse 73 Resp 16 B/P (MAP) 153/102 (119) Pulse Ox 97 O2 Delivery Room Air Capillary Refill : Less Than 3 Seconds Height, Weight, BMI Height: 6'2.00" Weight: 175lbs. 0.1oz. 79.020444zh; 27.00 BMI Method:Stated General Appearance: No Apparent Distress, WD/WN HEENT: Normal ENT Inspection Respiratory: Lungs Clear, Normal Breath Sounds, No Accessory Muscle Use Cardiovascular: Regular Rate, Rhythm, No Edema, No Murmur Neurologic/Psychiatric: Alert, Oriented x3 Skin: Normal Color, Warm/Dry Progress/Results/Core Measures Suspected Sepsis SIRS Temperature: Pulse: 73 Respiratory Rate: 16 Blood Pressure 153 /102 Mean: 119 Results/Orders My Orders Orders - DENIS MEEK MD Sulfamethoxazole/Trimet Ds Tab (Bactrim (02/26/23 08:15) Gabapentin Capsule/Tablet (Neurontin Cap (02/26/23 08:15) Nifedipine Xl Tablet (Procardia Xl Tab (02/26/23 08:15) Vital Signs/I&O 02/26/23 02/26/23 07:27 08:38 Temp 34.7 Pulse 73 73 Resp 16 16 B/P (MAP) 153/102 (119) 135/104 Pulse Ox 97 98 O2 Delivery Room Air Room Air Capillary Refill : Less Than 3 Seconds Blood Pressure Mean: 119 Progress Note : Progress Note His morning medications were provided including nifedipine XL 90 mg, gabapentin 100 mg, and Bactrim SS 1 dose. A 10-day supply of these medications was also provided to fill if he does not get his medications in the mail today. Departure Impression Primary Impression: Encounter for medication refill Disposition: HOME, SELF-CARE Condition: Improved Departure-Patient Inst. Decision time for Depature: 08:21 Referrals: PAUL QUACH MD (PCP/Family) Primary Care Physician Add. Discharge Instructions: Continue medications as previously prescribed. If you do not need the medications prescribed today, please call e-channel and cancel the prescriptions. All discharge instructions reviewed with patient and/or family. Voiced understanding. Scripts Gabapentin (Gabapentin) 100 Mg Capsule 100 MG PO BID for Neuropathic pain, #20 CAP Prov: DENIS MEEK MD 02/26/23 Nifedipine (Nifedipine ER) 90 Mg Tablet.er 90 MG PO DAILY, #10 TAB Prov: DENIS MEEK MD 02/26/23 Sulfamethoxazole/Trimethoprim (Sulfamethoxazole-Tmp Ss Tablet) 400 Mg-80 Mg Tabl et 1 EACH PO DAILY, #10 TAB Prov: DENIS MEEK MD 02/26/23 Copy Copies To 1: PAUL QUACH MD, JOSHUA T MD Feb 26, 2023 08:25
[2023-02-26 08:38] VITALS: BP 135/104
== END 2023-02-26 08:36 | disposition home or self-care (01) ==
LOC: EDUNIT# 07:19 → ER 07:21
DX: Z76.0 Encounter for issue of repeat prescription (principal); Z94.0 Kidney transplant status; Z28.311 Partially vaccinated for COVID-19
CPT/HCPCS: 99283